=== PATIENT | male | born 1940 | race Caucasian/White ===

== ENCOUNTER → 2018-04-01 08:51 | Outpatient (CLI) | payer MEDICARE, OTHER, SELFPAY ==
[2018-04-01 10:56] LABS: Anion Gap 7 (5-15); BUN 25 mg/dL (7-18); BUN/Creat Ratio 21.6 RATIO (10-20); Calcium,Total 8.9 mg/dL (8.5-10.1); Chloride 106 mmol/L (98-107); Cholesterol 160 mg/dL (200); Creatinine, Serum 1.16 mg/dL (0.70-1.30); EST Glomerular Filtration Rate 65 mL/min (>60); Est Glom Filt Rate - Afr Amer 78 mL/min (>60); Glucose 101 mg/dL (74-106); High Density Lipoprotein 34 mg/dL; Sodium Level 140 mmol/L (136-145); Thyroid Stim Hormone (TSH) 0.89 uIU/mL (0.358-3.74); Triglycerides 106 mg/dL; Very Low Density Lipoprotein 21 mg/dL (5-40)
== END ==
PROVIDERS: Family Provider Family Medicine; PCP Family Medicine; Visit Provider Family Medicine
DX: I10 Essential (primary) hypertension (principal); R53.83 Other fatigue
CPT/HCPCS: 36415; 80048; 80061; 84443

== ENCOUNTER → 2018-10-05 08:48 | Outpatient (CLI) | payer MEDICARE, OTHER, SELFPAY ==
[2018-10-05 10:53] LABS: Anion Gap 8 (5-15); BUN 17 mg/dL (7-18); BUN/Creat Ratio 13.7 RATIO (10-20); Calcium,Total 8.4 mg/dL (8.5-10.1); Chloride 106 mmol/L (98-107); Cholesterol 140 mg/dL (200); Creatinine, Serum 1.24 mg/dL (0.70-1.30); EST Glomerular Filtration Rate 60 mL/min (>60); Est Glom Filt Rate - Afr Amer 72 mL/min (>60); Glucose 90 mg/dL (74-106); High Density Lipoprotein 35 mg/dL; Potassium 3.8 mmol/L (3.5-5.1); Sodium Level 144 mmol/L (136-145); Triglycerides 148 mg/dL; Very Low Density Lipoprotein 30 mg/dL (5-40)
== END ==
PROVIDERS: Family Provider Family Medicine; PCP Family Medicine; Visit Provider Family Medicine
DX: I10 Essential (primary) hypertension (principal)
CPT/HCPCS: 36415; 80048; 80061

== ENCOUNTER → 2019-03-28 09:22 | Outpatient (CLI) | payer MEDICARE, OTHER, SELFPAY ==
[2019-03-28 18:00] LABS: Anion Gap 5 (5-15); BUN 22 mg/dL (7-18); BUN/Creat Ratio 17.5 RATIO (10-20); Calcium,Total 8.5 mg/dL (8.5-10.1); Chloride 107 mmol/L (98-107); Cholesterol 150 mg/dL (200); Creatinine, Serum 1.26 mg/dL (0.70-1.30); EST Glomerular Filtration Rate 59 mL/min (>60); Est Glom Filt Rate - Afr Amer 71 mL/min (>60); Glucose 85 mg/dL (74-106); High Density Lipoprotein 35 mg/dL; Potassium 3.5 mmol/L (3.5-5.1); Sodium Level 142 mmol/L (136-145); Triglycerides 176 mg/dL; Very Low Density Lipoprotein 35 mg/dL (5-40)
== END ==
PROVIDERS: Family Provider Family Medicine; PCP Family Medicine; Referring Provider Family Medicine; Visit Provider Family Medicine
DX: I10 Essential (primary) hypertension (principal)
CPT/HCPCS: 36415; 80048; 80061

== ENCOUNTER → 2019-09-28 09:07 | Outpatient (CLI) | payer MEDICARE, OTHER, SELFPAY ==
[2019-09-28 10:09] LABS: Anion Gap 8 (5-15); BUN 20 mg/dL (7-18); BUN/Creat Ratio 15.6 RATIO (10-20); Calcium,Total 8.7 mg/dL (8.5-10.1); Chloride 105 mmol/L (98-107); Cholesterol 151 mg/dL (200); Creatinine, Serum 1.28 mg/dL (0.70-1.30); EST Glomerular Filtration Rate 58 mL/min (>60); Est Glom Filt Rate - Afr Amer 70 mL/min (>60); Glucose 109 mg/dL (74-106); High Density Lipoprotein 34 mg/dL; Potassium 3.7 mmol/L (3.5-5.1); Sodium Level 142 mmol/L (136-145); Triglycerides 235 mg/dL; Very Low Density Lipoprotein 47 mg/dL (5-40)
== END ==
PROVIDERS: Family Provider Family Medicine; PCP Family Medicine; Visit Provider Family Medicine
DX: I10 Essential (primary) hypertension (principal); E78.1 Pure hyperglyceridemia
CPT/HCPCS: 36415; 80048; 80061

== ENCOUNTER → 2020-03-29 08:49 | Outpatient (CLI) | payer MEDICARE, OTHER, SELFPAY ==
[2020-03-29 10:45] LABS: Anion Gap 6 (5-15); BUN 16 mg/dL (7-18); BUN/Creat Ratio 13.2 RATIO (10-20); Calcium,Total 8.7 mg/dL (8.5-10.1); Chloride 108 mmol/L (98-107); Cholesterol 161 mg/dL (200); Creatinine, Serum 1.21 mg/dL (0.70-1.30); EST Glomerular Filtration Rate 61 mL/min (>60); Est Glom Filt Rate - Afr Amer 74 mL/min (>60); Glucose 108 mg/dL (74-106); High Density Lipoprotein 34 mg/dL; Potassium 3.5 mmol/L (3.5-5.1); Sodium Level 141 mmol/L (136-145); Triglycerides 218 mg/dL; Very Low Density Lipoprotein 44 mg/dL (5-40)
== END ==
PROVIDERS: PCP Family Medicine; Visit Provider Family Medicine
DX: I10 Essential (primary) hypertension (principal); E78.1 Pure hyperglyceridemia
CPT/HCPCS: 36415; 80048; 80061

== ENCOUNTER → 2020-09-27 09:04 | Outpatient (CLI) | payer MEDICARE, OTHER, SELFPAY ==
[2020-09-27 10:15] LABS: Anion Gap 6 (5-15); BUN 16 mg/dL (7-18); BUN/Creat Ratio 13.9 RATIO (10-20); Calcium,Total 8.9 mg/dL (8.5-10.1); Chloride 109 mmol/L (98-107); Cholesterol 151 mg/dL (200); Creatinine, Serum 1.15 mg/dL (0.70-1.30); EST Glomerular Filtration Rate 65 mL/min (>60); Est Glom Filt Rate - Afr Amer 79 mL/min (>60); Glucose 107 mg/dL (74-106); High Density Lipoprotein 44 mg/dL; Potassium 3.3 mmol/L (3.5-5.1); Sodium Level 144 mmol/L (136-145); Triglycerides 122 mg/dL; Very Low Density Lipoprotein 24 mg/dL (5-40)
== END ==
PROVIDERS: PCP Family Medicine; Referring Provider Family Medicine; Visit Provider Family Medicine
DX: I10 Essential (primary) hypertension (principal); E78.1 Pure hyperglyceridemia
CPT/HCPCS: 36415; 80048; 80061

== ENCOUNTER → 2020-10-04 09:20 | Outpatient (CLI) | payer MEDICARE, OTHER, SELFPAY ==
--- NOTE | 2020-10-04 09:48 | LES_PTH ---
PATIENT: MANJU ALVARADO LOC: [facility] U#:[id number] AGE/SX: 84/M ROOM: RE10/04/[address]: Dr. Bo Ambrosio MD : 1940 BED: DIS: SPEC #: [id number] RECD: 10/04/20 12:01 STATUS: RADHA ZARATE #: [id number] DARION: 10/04/20 09:[address]: Bo Ambrosio DEPT: SURGICAL PATHOLOGY RECD BY: Lianne Garcia Tissues: A - Skin of finger, NOS B - Skin of back, NOS Procedures: Surgery Specimen Level IV HEADER OPERATION: Skin excision PRE-OP DIAGNOSIS: Suspicious skin lesion TISSUE SUBMITTED: A - Left little finger growth, B - Back mole skin lesion MICROSCOPIC DIAGNOSIS A. Left little finger growth, biopsy: Superficial fragments of epidermis with parakeratosis. See comment. B. Back mole skin lesion, biopsy: Actinic keratosis with features of seborrheic keratosis. Negative for malignancy. SJ:amira 10/07/20 COMMENT A. Clinical correlation and appropriate follow up are necessary. Excisional biopsy of lesion is suggested if clinically indicated. MICROSCOPIC DESCRIPTION Slides are reviewed. GROSS DESCRIPTION A - Received in fixative is one container labeled with the patient's name and designated left little finger growth. The specimen consists of multiple irregular fragments of cintron-white soft indurated tissue that in aggregate measure 0.3 x 0.2 x 0.1 cm. The specimen is totally submitted in one cassette. B - Received in fixative is one container labeled with the patient's name and designated back mole. The specimen consists of a punch biopsy of cintron-brown skin measuring 0.4 x 0.3 x 0.1 cm. Also present in the container is a piece of cintron soft tissue measuring 0.2 x 0.1 x 0.1 cm. The entire specimen is submitted in one cassette. / TIMA:amira 10/04/20 TC:5 CPT: 03742 x2
== END ==
PROVIDERS: PCP Family Medicine; Referring Provider Family Medicine; Visit Provider Family Medicine
DX: L98.9 Disorder of the skin and subcutaneous tissue, unspecified (principal)
CPT/HCPCS: 88305

== ENCOUNTER → 2021-03-24 08:46 | Outpatient (CLI) | payer MEDICARE, OTHER, SELFPAY ==
[2021-03-24 10:22] LABS: AST(SGOT) 18 U/L (15-37); Alanine Aminotransfer ALT/SGPT 25 U/L (16-61); Albumin, Serum 3.7 g/dL (3.2-5.0); Alkaline Phosphatase 115 U/L (45-117); Anion Gap 6 (5-15); BUN 21 mg/dL (7-18); BUN/Creat Ratio 15.9 RATIO (10-20); Chloride 102 mmol/L (98-107); Cholesterol 169 mg/dL (200); Creatinine, Serum 1.32 mg/dL (0.70-1.30); EST Glomerular Filtration Rate 55 mL/min (>60); Est Glom Filt Rate - Afr Amer 67 mL/min (>60); Globulin 3.6 g/dL (2.2-4.2); Glucose 102 mg/dL (74-106); High Density Lipoprotein 41 mg/dL; Protein, Total 7.3 g/dL (6.4-8.2); Sodium Level 137 mmol/L (136-145); Triglycerides 153 mg/dL; Very Low Density Lipoprotein 31 mg/dL (5-40)
== END ==
PROVIDERS: PCP Family Medicine; Visit Provider Family Medicine
DX: E78.1 Pure hyperglyceridemia (principal)
CPT/HCPCS: 36415; 80053; 80061

== ENCOUNTER → 2021-09-22 09:04 | Outpatient (CLI) | payer MEDICARE, OTHER, SELFPAY ==
[2021-09-22 10:41] LABS: Anion Gap 8 (5-15); BUN 21 mg/dL (7-18); BUN/Creat Ratio 16.7 RATIO (10-20); Chloride 104 mmol/L (98-107); Cholesterol 146 mg/dL (200); Creatinine, Serum 1.26 mg/dL (0.70-1.30); EST Glomerular Filtration Rate 58 mL/min (>60); Est Glom Filt Rate - Afr Amer 71 mL/min (>60); Glucose 112 mg/dL (74-106); High Density Lipoprotein 32 mg/dL; Sodium Level 140 mmol/L (136-145); Triglycerides 274 mg/dL; Very Low Density Lipoprotein 55 mg/dL (5-40)
== END ==
PROVIDERS: PCP Family Medicine; Referring Provider Family Medicine; Visit Provider Family Medicine
DX: I10 Essential (primary) hypertension (principal)
CPT/HCPCS: 36415; 80048; 80061

== ENCOUNTER → 2022-03-23 | Outpatient (CLI) | payer MEDICARE, OTHER, SELFPAY ==
[2022-03-23 10:49] LABS: Anion Gap 7 (5-15); BUN 26 mg/dL (7-18); BUN/Creat Ratio 20.8 RATIO (10-20); Calcium,Total 8.5 mg/dL (8.5-10.1); Chloride 108 mmol/L (98-107); Cholesterol 143 mg/dL (200); Creatinine, Serum 1.25 mg/dL (0.70-1.30); EST Glomerular Filtration Rate 59 mL/min (>60); Est Glom Filt Rate - Afr Amer 71 mL/min (>60); Glucose 112 mg/dL (74-106); High Density Lipoprotein 34 mg/dL; Potassium 3.7 mmol/L (3.5-5.1); Sodium Level 141 mmol/L (136-145); Triglycerides 171 mg/dL; Very Low Density Lipoprotein 34 mg/dL (5-40)
== END | disposition home or self-care (01) ==
PROVIDERS: PCP Family Medicine; Referring Provider Family Medicine; Visit Provider Family Medicine
DX: I10 Essential (primary) hypertension (principal)
CPT/HCPCS: 36415; 80048; 80061

== ENCOUNTER → 2022-09-21 | Outpatient (CLI) | payer MEDICARE, OTHER, SELFPAY ==
[2022-09-21 13:09] LABS: AST(SGOT) 21 U/L (15-37); Alanine Aminotransfer ALT/SGPT 27 U/L (16-61); Albumin, Serum 3.7 g/dL (3.2-5.0); Alkaline Phosphatase 113 U/L (45-117); Anion Gap 6 (5-15); BUN 25 mg/dL (7-18); BUN/Creat Ratio 19.2 RATIO (10-20); Chloride 107 mmol/L (98-107); Cholesterol 148 mg/dL (200); EST Glomerular Filtration Rate 56 mL/min (>60); Est Glom Filt Rate - Afr Amer 68 mL/min (>60); Globulin 3.6 g/dL (2.2-4.2); Glucose 107 mg/dL (74-106); High Density Lipoprotein 32 mg/dL; Potassium 3.6 mmol/L (3.5-5.1); Protein, Total 7.3 g/dL (6.4-8.2); Sodium Level 140 mmol/L (136-145); Triglycerides 255 mg/dL; Very Low Density Lipoprotein 51 mg/dL (5-40)
== END | disposition home or self-care (01) ==
LOC: MFPLAB 09:18
PROVIDERS: PCP Family Medicine; Visit Provider Family Medicine
DX: I10 Essential (primary) hypertension (principal); Z12.5 Encounter for screening for malignant neoplasm of prostate
CPT/HCPCS: 36415; 80053; 80061

== ENCOUNTER → 2023-03-22 | Outpatient (CLI) | payer MEDICARE, OTHER, SELFPAY ==
[2023-03-22 10:15] LABS: AST(SGOT) 24 U/L (15-37); Alanine Aminotransfer ALT/SGPT 28 U/L (16-61); Albumin, Serum 3.6 g/dL (3.2-5.0); Alkaline Phosphatase 120 U/L (45-117); Anion Gap 1 (5-15); BUN 25 mg/dL (7-18); BUN/Creat Ratio 18.7 RATIO (10-20); Chloride 108 mmol/L (98-107); Cholesterol 155 mg/dL (200); Creatinine, Serum 1.34 mg/dL (0.70-1.30); EST Glomerular Filtration Rate 54 mL/min (>60); Est Glom Filt Rate - Afr Amer 65 mL/min (>60); Globulin 3.7 g/dL (2.2-4.2); Glucose 101 mg/dL (74-106); High Density Lipoprotein 32 mg/dL; Protein, Total 7.3 g/dL (6.4-8.2); Sodium Level 139 mmol/L (136-145); Triglycerides 202 mg/dL; Very Low Density Lipoprotein 40 mg/dL (5-40)
== END | disposition home or self-care (01) ==
LOC: MFPLAB 09:09
PROVIDERS: PCP Family Medicine; Visit Provider Family Medicine
DX: I10 Essential (primary) hypertension (principal)
CPT/HCPCS: 36415; 80053; 80061

== ENCOUNTER → 2023-09-20 | Outpatient (CLI) | payer MEDICARE, OTHER, SELFPAY ==
[2023-09-20 11:01] LABS: Anion Gap 5 (5-15); BUN 23 mg/dL (7-18); BUN/Creat Ratio 17.6 RATIO (10-20); Calcium,Total 8.9 mg/dL (8.5-10.1); Chloride 109 mmol/L (98-107); Creatinine, Serum 1.31 mg/dL (0.70-1.30); EST Glomerular Filtration Rate 55 mL/min (>60); Est Glom Filt Rate - Afr Amer 67 mL/min (>60); Glucose 105 mg/dL (74-106); Potassium 3.9 mmol/L (3.5-5.1); Sodium Level 141 mmol/L (136-145)
== END | disposition home or self-care (01) ==
LOC: MFPLAB 09:09
PROVIDERS: PCP Family Medicine; Visit Provider Family Medicine
DX: I10 Essential (primary) hypertension (principal)
CPT/HCPCS: 36415; 80048

== ENCOUNTER → 2024-03-23 | Outpatient (CLI) | payer MEDICARE, OTHER, SELFPAY ==
[2024-03-23 11:35] LABS: ALB/GLOB Ratio 0.8 RATIO (0.9-2.4); AST(SGOT) 22 U/L (15-37); Alanine Aminotransfer ALT/SGPT 20 U/L (16-61); Albumin, Serum 3.4 g/dL (3.2-5.0); Alkaline Phosphatase 98 U/L (45-117); Anion Gap 6 (5-15); BUN 22 mg/dL (7-18); BUN/Creat Ratio 16.7 RATIO (10-20); Calcium,Total 9.1 mg/dL (8.5-10.1); Chloride 107 mmol/L (98-107); Cholesterol 139 mg/dL (200); Creatinine, Serum 1.32 mg/dL (0.70-1.30); EST Glomerular Filtration Rate 55 mL/min (>60); Est Glom Filt Rate - Afr Amer 66 mL/min (>60); Glucose 104 mg/dL (74-106); High Density Lipoprotein 40 mg/dL; Potassium 3.9 mmol/L (3.5-5.1); Protein, Total 7.4 g/dL (6.4-8.2); Sodium Level 140 mmol/L (136-145); Triglycerides 92 mg/dL; Very Low Density Lipoprotein 18 mg/dL (5-40)
== END | disposition home or self-care (01) ==
LOC: MFPLAB 09:19
PROVIDERS: PCP Family Medicine; Visit Provider Family Medicine
DX: I10 Essential (primary) hypertension (principal)
CPT/HCPCS: 36415; 80053; 80061

== ENCOUNTER → 2024-09-27 | Outpatient (CLI) | payer MEDICARE, OTHER, SELFPAY ==
--- OUTSIDE RECORDS SUMMARY | 2024-09-27 10:09 | XMS RPT_ITS | CCD ---
Author Organization [facility] Inform ion Partnership [facility] [employer] Care Team Providers Care Survey Party Chief Name Role Phone Pending Provider Unavailable Unavailable BHAVNA KERN II Attending UnavailBO Keyes Primary Care Unavailable MD VINCENT FRAZIER Attending Unavailabl e FRAZIER, MD VINCENT SILVA Referring Unavailabl e Pending, Provider Primary Care Unavailable MD VINCENT FRAZIER Attending Unavailabl e FRAZIER, MD VINCENT SILVA Referring Unavailabl e Pending, Provider Primary Care Unavailable MD VINCENT FRAZIER Attending Unavailabl e FRAZIER, MD VINCENT SILVA Referring Unavailabl e Pending, Provider Primary Care Unavailable Unavailable Primary Care Provider UnavailVINCENT Vaughan Referring Unavailable BO NOBLE Primary Care Unavailable VINCENT FRAZIER Attending Unavailable FRAZIERVINCENT Mak Attending Unavailable FRAZIERVINCENT Mak Attending Unavailable BO NOBLE Primary Care Unavailable Hebert COLEMAN, Bo Hall Primary Care Provider Allergies Allergy Classification Reported Allergen(s) Allergy Type Date of Onset Reaction(s) Facility (17 sources) Penicillins; Translations: [Penicillins] Allergy to drug (finding) 02-18-20 14 [facility] Repository (15 sources) Sulfamethoxazole / Trimethoprim; Translations: [Bactrim] Drug Allergy 02-15-20 24 Unknown [facility] Work Phone: (6 sources) Doxycycline; Translations: [DOXYCYCLINE] Drug Allergy 11-06-20 21 Unknown [facility] Repository (1 source) Seasonal allergy; Translations: [SEASONAL ALLERGIES] Propensity to adverse reactions (disorder) 05-29-20 15 [facility] Repository (2 sources) Penicillins Drug Allergy 02-18-20 14 [facility] Work Phone: (3 sources) Sulfamethoxazole / Trimethoprim; Translations: [SULFAMETHOXAZOLE-TR IMETHOPRIM] Drug Allergy 02-15-20 [facility] (1 source) ALLERGIES NOT ON FILE; Translations: [ALLERGIES NOT ON FILE] Propensity to adverse reactions (disorder) [facility] Medications Current Medications Medication Drug Class(es) Dates Sig (Normalized) Sig (Original) amLODIPine 10 mg oral tablet (15 sources) Dihydropyridine Calcium Channel Josefa Start: 02-17-2014 amLODIPine (Norvasc) 10 mg tablet Take by mouth. 02/17/2014 Active amLODIPine Besyl ate 10 MG Oral Tablet Quantity: 0 Refills: 0 Ordered: 20-Jan-2021 DO Active Glucosamine (2 sources) GLUCOSAMINE HCL ORAL Take by mouth. Active GLUCOSAMINE HCL ORAL Take by mouth. 0 Active hydroCHLOROthiazide 25 mg oral tablet (15 sources) Thiazide Diuretic Start: 02-17-2014 take 1 tablet by mouth once daily hydroCHLOROthiazide (HYDRODiuril) 25 mg tablet Take 1 tablet (25 mg) by mouth once daily. 02/17/2014 Active hydroCHLOROthiaz jesús 25 MG Oral Tablet Quantity: 0 Refills: 0 Ordered: 29-Dec-2019 DO Active losartan potassium 50 mg oral tablet (14 sources) Angiotensin 2 Receptor Josefa take 1 tablet by mouth once daily losartan (Cozaar) 50 mg tablet Take 1 tablet (50 mg) by mouth once daily. Active Losartan Potassi um 50 MG Oral Tablet Quantity: 0 Refills: 0 Ordered: 25-Aug-2021 DO Active zinc sulfate 66 mg oral tabl et (2 sources) zinc sulfate (Zi nc-15) 66 mg tablet Take by mouth. Active zinc sulfate (Zi nc-15) 66 mg tablet Take by mouth. 0 Active Completed/Discontinued Medications Medication Drug Class(es) Dates Sig (Normalized) Sig (Original) lisinopril 10 mg oral tablet (1 source) Angiotensin Converting Enzyme Inhibitor Start: 10-28-2020 Lisinopril 10 MG Oral Tablet Quantity: 90 Refills: 0 Ordered: 28-Oct-2020 DO Start : 28-Oct-2020 Active Problems Active Problems Problem Classification Problem Date Documented Da te Episodic/Chronic Hyperplasia of prostate (20 sources) Benign prostatic hypertrophy without outflow obstruction; Translations: [Hypertrophy (benign) of prostate without urinary obstruction and other lower urinary tract symptom (LUTS)] Onset: 02-04-2024 02-15-2024 Chronic Other male genital disorders (19 sources) Male erectile dysfunction, unspecified; Translations: [Erectile dysfunction] Onset: 02-15-2024 02-15-2024 Chronic Past or Other Problems Problem Classification Problem Date Documented Da te Episodic/Chronic Genitourinary symptoms and ill-defined conditions (19 sources) Nocturia; Translations: [Nocturia] Onset: 02-15-2024 02-15-2024 Episodic Other screening for suspected conditions (not mental disorders or infectious disease) (20 sources) Raised prostate specific antigen; Translations: [Elevated prostate specific antigen [PSA]] Onset: 02-15-2024 02-15-2024 Episodic Unclassified (2 sources) Onset: 02-16-2024 02-16-2024 Results Test Name Value Interpretation Reference Range Facility MR PROSTATE WITH [place]OR[place] BOUNDAR IES IF PIRADS 3 OR ABOVEon 08-24-2024 MR PROSTATE WITH [place]OR[place] BOUNDARIES IF PIRADS 3 OR ABOVE Interpreted By: Joselo Gentile and Anayeli Rose STUDY: MR PROSTATE WITH [place]OR[place] BOUNDARIES IF PIRADS 3 OR ABOVE; 08/24/2024 12:44 pm INDICATION: Signs/Symptoms:eleva pan PSA. Per EMR, patient is an 83-year-old male with an elevated PSA of 21.1 ng/mL on 08/07/2024 and prior negative prostate biopsy in 2018. ,R97.20 Elevated prostate specific antigen (PSA) COMPARISON: Prostate MRI 02/06/2021 ACCESSION NUMBER(S): [id number] ORDERING CLINICIAN: VINCENT FRAZIER TECHNIQUE: Multiplanar MRI of the pelvis was obtained including axial, sagittal and coronal T2 weighted SSFSE, axial and sagittal T2 FSE, axial DWI, pre and post gadolinium dynamic T1 GRE sequences. Multiparametric analysis was performed. 15 ML of Dotarem was administered intravenously without immediate complications. FINDINGS: PROSTATE VOLUME: The prostate measures 5.5 cm x 4.5 cm x 5.9 cm in lwwtt-ve-gjkq, anterior-posterior and craniocaudal dimension. Prostate weight is estimated at 76.5g. PSA density is 0.28 ng/mL/g. PROSTATE PARENCHYMA: There is heterogeneous enlargement of the transition zone, consistent with benign prostatic hyperplasia. The peripheral zone is diffusely heterogenous on T2WI, with bilateral polygonal and wedge-shaped T2-hypointense areas, that show no signs of abnormally restricted diffusion (PI-RADS 2). EXTRACAPSULAR EXTENSION: None. SEMINAL VESICLES: Within normal limits. PELVIC LYMPH NODES: Small bilateral external iliac lymph nodes, more on the left. No abnormally enlarged pelvic lymph nodes are identified. PERITONEUM: No free or loculated fluid collections are evident in the pelvis. OTHER ORGANS: Small bilateral fat containing inguinal hernias, right greater than left. Experimental [employer] Test Mechanic imaging demonstrates small bilateral extratesticular spermatoceles versus small hydroceles. BONES: No focal lesions are noted in the bone. Exam Quality: Is T2WI weighted imaging of diagnostic quality: Yes. T2WI assessment: Adequate. Is DWI of diagnostic quality: Yes. DWI assessment: Adequate. Is DCE of diagnostic quality: Yes. DCE assessment: Adequate. PI-QUAL score: Two or more sequences independently are of diagnostic quality Comments: IMPRESSION: 1. No evidence of clinically significant prostatic neoplasm. 2. BPH changes of the transition zone. Diffuse non nodular hypointensities within the peripheral zone, without evidence of focally restricted diffusion ( PI-RADS 2). PI-RADS 2 - Low (clinically significant cancer is unlikely to be present). I personally reviewed the images/study and I agree with the findings as stated by resident physician Dr. Rose Carrington. This study was interpreted at [place], [place]. MACRO: None Signed by: Joselo Gentile 08/27/2024 9:25 PM Dictation workstation: [id number] Normal [facility] Prostate specific Agon 08-07 Prostate specific Ag [Mass/Vol] 21.07 ng/mL High <=4.00 [facility] Comment on above: Order Comment: The F DA requires that the method used for PSA assay be reported to the physician. Values obtained with different assay methods must not be used interchangeably. This test was performed at [facility] using the [employer]ubble [employer] Balm PSA assay is a two-site immunoenzymatic sandwich assay. The assay is approved for measurement of prostate-specific antigen (PSA)in serum and may be used in conjunction with a digital rectal examination in men 50 years and older as an aid in detection of prostate cancer. 8-Dperb-zmhigsgfe inhibitors (e.g. Proscar, Finasteride, Avodart, Dutasteride and Ashley) for the treatment of BPH have been shown to lower PSA levels by an average of 50% after 6 months of treatment. Performed By: #### 2 857-1 #### LIANNE DE LEÓN ([id number]) [facility] [address] [place], [place] [id number] Prostate specific Agon 02-03 Prostate specific Ag [Mass/Vol] 15.50 ng/mL High <=4.00 [facility] Comment on above: Order Comment: The F DA requires that the method used for PSA assay be reported to the physician. Values obtained with different assay methods must not be used interchangeably. This test was performed at [facility] using the Bubble [employer] Balm PSA assay is a two-site immunoenzymatic sandwich assay. The assay is approved for measurement of prostate-specific antigen (PSA)in serum and may be used in conjunction with a digital rectal examination in men 50 years and older as an aid in detection of prostate cancer. 2-Nwapl-cnfxrcder inhibitors (e.g. Proscar, Finasteride, Avodart, Dutasteride and Ashley) for the treatment of BPH have been shown to lower PSA levels by an average of 50% after 6 months of treatment. Performed By: #### 2 857-1 #### LIANNE DE LEÓN ([id number]) [facility] [address] [place], [place] [address] Office Visit (Urology)on Follow-up visit Diagnoses/Problems Assessed Benign prostatic hyperplasia without urinary obstruction (600.00) (N40.0) Elevated PSA (790.93) (R97.20) Erectile dysfunction (607.84) (N52.9) Nocturia (788.43) (R35.1) Former smoker (V15.82) (Z87.891) Patient Discussion/Summary All available PSA values reviewed, Options discussed. Questions answered. Pros and cons of prostate biopsy reviewed. Other options discussed. Questions answered Past MRI reviewed Discussed New MRI Diet changes for prostate health discussed and educational information given. Pros/Cons of prostate health supplements discussed. Treatment options for LUTS reviewed Discussed timed voiding. Discussed fluid and caffeine intake Treatment options for ED reviewed. Lifestyle change to help prevent UTIs discussed. Encouraged fluid intake. F/u 6 months with PSA Chief Complaint 6 mo w/ PSA History of Present IllnessPatient has chronic hx of Elevated PSA. Most recent PSA was 15.92 on 08/21. Prior PSA was 15.66 (02/18) Previous PSA was 12.47 on 08/20. Prior PSA was 11.44 on 02/17. Prior PSA was 10.43 on 07/2021. Prior PSA was 12.52 on 12/2020. Prior PSA was done 07/18 and was 10.49..prior PSA was 10.53 on 12/2019 . Pt has had 2 negative bx in the past. Last bx on 06/2018.. Negative MRI on 01/2021. No weight loss...No bone pain... No fhx of prostate ca... LUT's are chronic and mild...Some urgency but no frequency ... No dysuria..No hematuria...Nocturia 1x. No medications for LUT's... ED is chronic. No medications for this. Review of Systems Constitutional: No fever, No chills. Eye: Negative. Ear/Nose/Mouth/Throa t: Negative. Respiratory: No shortness of breath, No cough. Cardiovascular: No chest pain, No peripheral edema. Gastrointestinal: No nausea, Genitourinary: Negative except as documented in history of present illness. Hematology/Lymphatic s: Patient denies being on blood thinners.. Endocrine: Negative. Immunologic: Not immunocompromised. Musculoskeletal: Negative Integumentary: Negative. Neurologic: Alert and oriented X4. Psychiatric: Negative. Active Problems Problems Benign prostatic hyperplasia without urinary obstruction (600.00) (N40.0) Elevated PSA (790.93) (R97.20) Erectile dysfunction (607.84) (N52.9) Nocturia (788.43) (R35.1) Surgical History Problems History of Cholecystectomy Family History Mother Family history of cardiac arrest (V17.49) (Z82.49) Family history of hypertension (V17.49) (Z82.49) Father Family history of diabetes mellitus (V18.0) (Z83.3) Sister Family history of leukemia (V16.6) (Z80.6) Social History Problems Former smoker (V15.82) (Z87.891) Allergies Medication Bactrim Recorded By: Becky Payton; 12/29/2019 9:57:01 AM Additional reactions - allergy Penicillins Recorded By: Becky Payton; 12/29/2019 9:57:01 AM Additional reactions - allergy Current Meds Medication NameInstruction amLODIPine Besylate 10 MG Oral Tablet hydroCHLOROthiazide 25 MG Oral Tablet Losartan Potassium 50 MG Oral Tablet Vitals Vital Signs Recorded: [id number] 10:59AM Heart Rate65 Peidxfsn029 Cutwrwlmz28 Pvlckz065 lb 8 oz BMI Hcnflnztjq04.52 kg/m2 BSA Calculated1.87 Tobacco Useb) No PHQ-2 #1. Over the last 2 weeks have you felt down, depressed or hopeless? (If yes, answer PHQ-9 below)No PHQ-2 #2. Over the last 2 weeks have you felt little interest or pleasure in doing things? (If yes, answer PHQ-9 below)No Falls Screening (Age 18+)a) No falls within the last year Physical Exam A/O x 3 in No apparent distress Constitutional: General appearance normal Respiratory: Respiratory effort is normal Gastrointestinal:Abd omen is not tender Genitourinary: Kidneys: Not palpable Bilaterally Bladder: Not palpable or tender Scrotum: No mass. No Hydrocele Epididymis: BILATERAL spermatocele. Not tender Testicles: no mass Urethra: No Discharge Penis: WNL...No lesions. Prostate: Symmetric. No Nodules. BENIGN Seminal Vesicles: No mass Sphincter Tone: normal Signatures Electronically signed by : Vincent Frazier II, MD; Aug 18 2023 11:12AM EST (Author) Normal [employer] Tobacco Screening.on 023 Adult depression screening assessment No MM-Xaliurt-Tbug and Work Phone: Fall risk assessment a) No falls within the last year JO-Ihabufu-Zckm and Work Phone: Tobacco use status CPHS b) No SR-Tcpdvos-Evbt and Work Phone: PROSTATE SPECIFIC AGon 08-09 Prostate specific Ag [Mass/Vol] 15.92 ng/mL High 0.00 - 4.00 [facility] Comment on above: Result Comment: The FDA requires that the method used for PSA assay be reported to the physician. Values obtained with different assay methods must not be used interchangeably. This test was performed at [facility] using the Access [employer] PSA assay is a two-site immunoenzymatic sandwich assay. The assay is approved for measurement of prostate-specific antigen (PSA)in serum and may be used in conjunction with a digital rectal examination in men 50 years and older as an aid in detection of prostate cancer. 6-Wolpy-wyetkuxgi inhibitors (e.g. Proscar, Finasteride, Avodart, Dutasteride and Ashley) for the treatment of BPH have been shown to lower PSA levels by an average of 50% after 6 months of treatment. Performed By: #### P SA #### [id number] [place] [address] Prostate Specific Antigenon 08-09-2023 Prostate specific Ag [Mass/Vol] 15.92 ng/mL above high threshold See Below ZZ-Jgnevqg-[facility] 232 DO Work Phone: Comment on above: Reference Range: 0.0 0 - 4.00The FDA requires that the method used for PSA assay be reported to the physician. Values obtained with different assay methods must not be used interchangeably. This testwas performed at [facility] using the Access Hybr[employer]ch PSA assay is a two-site immunoenzymatic sandwich assay. The assay is approved for measurement of prostate-specific antigen (PSA)in serum and may be used in conjunction with a digital rectal examination in men 50 years and older as an aid in detection of prostate cancer.6-Tgrbv-wxyjqntsh inhibitors (e.g. Proscar, Finasteride, Avodart, Dutasteride and Ashley) for the treatment of BPH have been shown to lower PSA levels by an average of 50% after 6 months of treatment. IO UA (automated w/o microsc opy)on 02-17-2023 Protein (U) [Mass/Vol] Negative KP-Dvjomjo-Tsae and Work Phone: IO UA (automated w/o microscopy) Negative XU-Fktjzps-Cany and Work Phone: IO UA (automated w/o microscopy) Normal JP-Zegltvp-Ejrd and Work Phone: IO UA (automated w/o microscopy) 5.0 1 TG-Bdjvulz-Pbjh and Work Phone: IO UA (automated w/o microscopy) 1.025 1 TV-Mvuvzza-Qaql and Work Phone: IO UA (automated w/o microscopy) Clear HJ-Yggdmbq-Uqbu and Work Phone: IO UA (automated w/o microscopy) Colorless AC-Wiprqdz-Ntjx and Work Phone: IO Ultrasound, measurement p ost-void resid urine and/or bl cap; no imagon 02-17-2023 IO Ultrasound, measurement post-void resid urine and/or bl cap; no imag 0 ml/min XY-Fnfijsy-Lfve and Work Phone: Office Visit (Urology)on Follow-up visit Diagnoses/Problems Assessed Benign prostatic hyperplasia without urinary obstruction (600.00) (N40.0) Elevated PSA (790.93) (R97.20) Erectile dysfunction (607.84) (N52.9) Nocturia (788.43) (R35.1) Former smoker (V15.82) (Z87.891) Orders Elevated PSA Follow-up visit in 6 months Outpatient Follow-up PSA Status: Hold For - Scheduling,Retrospec tive Authorization Requested for: 17Feb2023 Ordered Stat;For: Elevated PSA; Ordered By: Vincent Frazier II Performed: Due: 18May2023; Last Updated By: Radha Martin; 02/17/2023 10:33:41 AM Elevated PSA, Nocturia Prostate Specific Antigen; Status:Active - Retrospective Authorization; Requested for:17Feb2023; Perform:Lab Services - Lab To Draw (Blood Test); Due:18May2023; Last Updated By:Radha Martin; 02/17/2023 10:33:41 AM;Ordered; For:Elevated PSA, Nocturia; Ordered By:Vincent Frazier II; Patient Discussion/Summary All available PSA values reviewed, Options discussed. Questions answered. Pros and cons of prostate biopsy reviewed. Other options discussed. Questions answered Past BX reviewed DIscussed MRI Diet changes for prostate health discussed and educational information given. Pros/Cons of prostate health supplements discussed. Treatment options for LUTS reviewed Discussed timed voiding. Discussed fluid and caffeine intake Treatment options for ED reviewed. UA and PVR ordered/reviewed F/U 6 months with PSA Chief Complaint 6 mo w/ PSA History of Present IllnessPatient has chronic hx of Elevated PSA. Most recent PSA was 15.66 (02/18) Previous PSA was 12.47 on 08/20. Prior PSA was 11.44 on 02/17. Prior PSA was 10.43 on 07/2021. Prior PSA was 12.52 on 12/2020. Prior PSA was don 07/18 and was 10.49..prior PSA was 10.53 on 12/2019 . Pt has had 2 negative bx in the past. Last bx on 06/2018.. Negative MRI on 01/2021. No weight loss...No bone pain... No fhx of prostate ca... LUT's are chronic and mild...Some urgency but no frequency ... Some urge incontinence. No dysuria..No hematuria...Nocturia 1x. No medications for LUT's... ED is chronic. No medications for this. Review of Systems Constitutional: No fever, No chills. Eye: Negative. Ear/Nose/Mouth/Throa t: Negative. Respiratory: No shortness of breath, No cough. Cardiovascular: No chest pain, No peripheral edema. Gastrointestinal: No nausea, Genitourinary: Negative except as documented in history of present illness. Hematology/Lymphatic s: Patient denies being on blood thinners.. Endocrine: Negative. Immunologic: Not immunocompromised. Musculoskeletal: Negative Integumentary: Negative. Neurologic: Alert and oriented X4. Psychiatric: Negative. Active Problems Problems Benign prostatic hyperplasia without urinary obstruction (600.00) (N40.0) Elevated PSA (790.93) (R97.20) Erectile dysfunction (607.84) (N52.9) Nocturia (788.43) (R35.1) Surgical History Problems History of Cholecystectomy Family History Mother Family history of cardiac arrest (V17.49) (Z82.49) Family history of hypertension (V17.49) (Z82.49) Father Family history of diabetes mellitus (V18.0) (Z83.3) Sister Family history of leukemia (V16.6) (Z80.6) Social History Problems Former smoker (V15.82) (Z87.891) Allergies Medication Bactrim Recorded By: Becky Payton; 12/29/2019 9:57:01 AM Additional reactions - allergy Penicillins Recorded By: Becky Payton; 12/29/2019 9:57:01 AM Additional reactions - allergy Current Meds Medication NameInstruction amLODIPine Besylate 10 MG Oral Tablet hydroCHLOROthiazide 25 MG Oral Tablet Losartan Potassium 50 MG Oral Tablet Vitals Vital Signs Recorded: 17Feb2023 10:27AM Czgshmgorps71 Height5 ft 6 in Xlcaka667 lb BMI Rugyecoyjh57.25 kg/m2 BSA Calculated1.89 Tobacco Useb) No PHQ-2 Patient Declined/Screening not indicatedYes Falls Screening (Age 18+)a) No falls within the last year Physical Exam A/O x 3 in No apparent distress Constitutional: General appearance normal Respiratory: Respiratory effort is normal Gastrointestinal:Abd omen is not tender Genitourinary: Kidneys: Not palpable Bilaterally Bladder: Not palpable or tender Scrotum: No mass. No Hydrocele Epididymis: No spermatocele. Not tender Testicles: no mass Urethra: No Discharge Penis: WNL...No lesions Prostate: Symmetric. No Nodules Seminal Vesicles: No mass Sphincter Tone: normal Signatures Electronically signed by : Vincent Frazier II, MD; Feb 17 2023 10:37AM EST (Author) Normal [employer] Tobacco Screening.on 023 Fall risk assessment a) No falls within the last year IG-Ftuvhij-Ehca and Work Phone: Tobacco use status CPHS b) No XF-Kshbbsz-Igkp and Work Phone: Tobacco Screening. Yes WO-Joccopw-Jouk and Work Phone: PROSTATE SPECIFIC AGon 02-12 Prostate specific Ag [Mass/Vol] 15.66 ng/mL High 0.00 - 4.00 [facility] Comment on above: Result Comment: The FDA requires that the method used for PSA assay be reported to the physician. Values obtained with different assay methods must not be used interchangeably. This test was performed at [facility] using the Bubble [employer] Balm PSA assay is a two-site immunoenzymatic sandwich assay. The assay is approved for measurement of prostate-specific antigen (PSA)in serum and may be used in conjunction with a digital rectal examination in men 50 years and older as an aid in detection of prostate cancer. 6-Iatqr-qnznfavdt inhibitors (e.g. Proscar, Finasteride, Avodart, Dutasteride and Ashley) for the treatment of BPH have been shown to lower PSA levels by an average of 50% after 6 months of treatment. Performed By: #### P SA #### [id number] [place] [address] Prostate Specific Antigenon 02-12-2023 Prostate specific Ag [Mass/Vol] 15.66 ng/mL above high threshold See Below CX-Xxgozgh-Stly [facility] 232 DO Work Phone: Comment on above: Reference Range: 0.0 0 - 4.00The FDA requires that the method used for PSA assay be reported to the physician. Values obtained with different assay methods must not be used interchangeably. This testwas performed at [facility] using the Bubble [employer] Balm PSA assay is a two-site immunoenzymatic sandwich assay. The assay is approved for measurement of prostate-specific antigen (PSA)in serum and may be used in conjunction with a digital rectal examination in men 50 years and older as an aid in detection of prostate cancer.2-Hgwon-mdmqqipoj inhibitors (e.g. Proscar, Finasteride, Avodart, Dutasteride and Ashley) for the treatment of BPH have been shown to lower PSA levels by an average of 50% after 6 months of treatment. Office Visit (Urology)on Follow-up visit Diagnoses/Problems Assessed Benign prostatic hyperplasia without urinary obstruction (600.00) (N40.0) Elevated PSA (790.93) (R97.20) Erectile dysfunction (607.84) (N52.9) Nocturia (788.43) (R35.1) Former smoker (V15.82) (Z87.891) Orders Elevated PSA, Nocturia Follow-up visit in 6 months Outpatient Follow-up PSA Status: Hold For - Scheduling,Retrospec tive Authorization Requested for: [id number] Ordered Stat;For: Elevated PSA, Nocturia; Ordered By: Vincent Frazier II Performed: Due: [id number]; Last Updated By: Radha Martin; 08/21/2022 10:26:43 AM Prostate Specific Antigen; Status:Active - Retrospective Authorization; Requested for:[id number]; Perform:Lab Services - Lab To Draw (Blood Test); Due:[id number]; Last Updated By:Radha Martin; 08/21/2022 10:26:43 AM;Ordered; For:Elevated PSA, Nocturia; Ordered By:Vincent Frazier II; Patient Discussion/Summary All available PSA values reviewed, Options discussed. Questions answered. Past Bx reviewed MRI reviewed Diet changes for prostate health discussed and educational information given. Pros/Cons of prostate health supplements discussed. Treatment options for LUTS reviewed Discussed timed voiding. Discussed fluid and caffeine intake Treatment options for ED reviewed. Lifestyle change to help prevent UTIs discussed. Encouraged fluid intake. F/U 6 months with PSA Chief Complaint 6 mo w/ PSA History of Present IllnessPatient has chronic hx of Elevated PSA. Most recent PSA was 12.47 on 08/20. Prior PSA was 11.44 on 02/17. Prior PSA was 10.43 on 07/2021. Prior PSA was 12.52 on 12/2020. Prior PSA was don 07/18 and was 10.49..prior PSA was 10.53 on 12/2019...Prior PSA was 9.70 on 06/2019. Prior PSA was 11.51 on 12/2018. . Pt has had 2 negative bx in the past. Last bx on 06/2018.. Negative MRI on 01/2021. No weight loss...No bone pain... No fhx of prostate ca... LUT's are chronic and mild...Some urgency but no frequency ... Some urge incontinence. No dysuria..No hematuria...Nocturia 1x. No medications for LUT's... ED is chronic. No medications for this. Review of Systems Constitutional: No fever, No chills Eye: negative Respiratory: No shortness of breath, No cough. Cardiovascular: No chest pain Gastrointestinal: No nausea Genitourinary: Negative except as documented in history of present illness. Hematology/Lymphatic s: Patient denies being on blood thinners.. Endocrine: Negative. Immunologic: Not immunocompromised. Musculoskeletal: Negative Integumentary: Negative. Neurologic: Alert and oriented X4. Psychiatric: Negative. Active Problems Problems Benign prostatic hyperplasia without urinary obstruction (600.00) (N40.0) Elevated PSA (790.93) (R97.20) Erectile dysfunction (607.84) (N52.9) Nocturia (788.43) (R35.1) Surgical History Problems History of Cholecystectomy Family History Mother Family history of cardiac arrest (V17.49) (Z82.49) Family history of hypertension (V17.49) (Z82.49) Father Family history of diabetes mellitus (V18.0) (Z83.3) Sister Family history of leukemia (V16.6) (Z80.6) Social History Problems Former smoker (V15.82) (Z87.891) Allergies Medication Bactrim Recorded By: Becky Payton; 12/29/2019 9:57:01 AM Additional reactions - allergy Penicillins Recorded By: Becky Payton; 12/29/2019 9:57:01 AM Additional reactions - allergy Current Meds Medication NameInstruction amLODIPine Besylate 10 MG Oral Tablet hydroCHLOROthiazide 25 MG Oral Tablet Losartan Potassium 50 MG Oral Tablet Vitals Vital Signs Recorded: 21Aug2022 10:15AM Kbowgdxcelo24 Height5 ft 6 in Irbifp000 lb BMI Bbcabcvgcn08.41 kg/m2 BSA Calculated1.89 Tobacco Useb) No PHQ-2 Patient Declined/Screening not indicatedYes Falls Screening (Age 18+)a) No falls within the last year Physical Exam A/O x 3 in No apparent distress Constitutional: General appearance normal Respiratory: Respiratory effort is normal Gastrointestinal:Abd omen is not tender Genitourinary: Kidneys: Not palpable Bilaterally Bladder: Not palpable or tender Scrotum: No mass. No Hydrocele Epididymis: BILATERAL spermatocele. Not tender Testicles: no mass. WNL Urethra: No Discharge Penis: WNL...No lesions. uncircumcised Prostate: Symmetric. No Nodules. smooth Seminal Vesicles: No mass Sphincter Tone: normal Signatures Electronically signed by : Vicnent Frazier II, MD; Aug 21 2022 10:28AM EST (Author) Normal [employer] Tobacco Screening.on 022 Fall risk assessment a) No falls within the last year YX-Msdifpn-Vqls and Work Phone: Tobacco use status CPHS b) No YO-Qebqsgy-Daqa and Work Phone: Tobacco Screening. Yes EH-Ucovdwc-Skol and Work Phone: Prostate Specific Antigenon 08-14-2022 Prostate specific Ag [Mass/Vol] 12.47 ng/mL above high threshold See Below WO-Frtcbko-Ujgm land HC 232 DO Work Phone: Comment on above: Reference Range: 0.0 0 - 4.00The FDA requires that the method used for PSA assay be reported to the physician. Values obtained with different assay methods must not be used interchangeably. This testwas performed at [facility] using the Access Hybritech PSA assay is a two-site immunoenzymatic sandwich assay. The assay is approved for measurement of prostate-specific antigen (PSA)in serum and may be used in conjunction with a digital rectal examination in men 50 years and older as an aid in detection of prostate cancer.0-Kfwtp-yapyjyivt inhibitors (e.g. Proscar, Finasteride, Avodart, Dutasteride and Ashley) for the treatment of BPH have been shown to lower PSA levels by an average of 50% after 6 months of treatment. Prostate Specific Antigenon 02-16-2022 Prostate specific Ag [Mass/Vol] 11.44 ng/mL above high threshold See Below [facility] and Work Phone: Comment on above: Reference Range: 0.0 0 - 4.00The FDA requires that the method used for PSA assay be reported to the physician. Values obtained with different assay methods must not be used interchangeably. This testwas performed at [facility] using the Access Hybritech PSA assay is a two-site immunoenzymatic sandwich assay. The assay is approved for measurement of prostate-specific antigen (PSA)in serum and may be used in conjunction with a digital rectal examination in men 50 years and older as an aid in detection of prostate cancer.9-Xqekc-sydgwlyqw inhibitors (e.g. Proscar, Finasteride, Avodart, Dutasteride and Ashley) for the treatment of BPH have been shown to lower PSA levels by an average of 50% after 6 months of treatment. IO UA (automated w/o microsc opy)on 08-25-2021 Protein (U) [Mass/Vol] Negative YJ-Ijzbtlo-Sexg and Work Phone: IO UA (automated w/o microscopy) Negative ZB-Ijsqbre-Otvf and Work Phone: IO UA (automated w/o microscopy) Normal (0.2-1.0 mg/dl) ML-Nsyarnk-Qxsl and Work Phone: IO UA (automated w/o microscopy) 6.0 1 NH-Dyksarq-Kxbw and Work Phone: IO UA (automated w/o microscopy) 1.020 1 ID-Ljrbtvz-Mwwv and Work Phone: IO UA (automated w/o microscopy) Clear DW-Miwirow-Ovam and Work Phone: IO UA (automated w/o microscopy) Yellow ED-Mxfiubu-Lbrb and Work Phone: Tobacco Screening.on 021 Fall risk assessment a) No falls within the last year UE-Qxiowgi-Wmvr and Work Phone: Tobacco use status CPHS b) No FE-Qygpdvt-Zhbl and Work Phone: PROSTATE SPECIFIC AGon 08-20 Prostate specific Ag [Mass/Vol] 10.43 ng/mL High 0.00 - 4.00 [facility] Comment on above: Result Comment: The FDA requires that the method used for PSA assay be reported to the physician. Values obtained with different assay methods must not be used interchangeably. This test was performed at [facility] using the [employer] PharmabrGreenCloud PSA assay is a two-site immunoenzymatic sandwich assay. The assay is approved for measurement of prostate-specific antigen (PSA)in serum and may be used in conjunction with a digital rectal examination in men 50 years and older as an aid in detection of prostate cancer. 0-Udpov-wlijtgyqq inhibitors (e.g. Proscar, Finasteride, Avodart, Dutasteride and Ashley) for the treatment of BPH have been shown to lower PSA levels by an average of 50% after 6 months of treatment. Performed By: #### P SA #### [place] [address] Prostate Specific Antigenon 08-20-2021 Prostate specific Ag [Mass/Vol] 10.43 ng/mL above high threshold See Below CK-Dsqzpbx-Fhek and Work Phone: Comment on above: Reference Range: 0.0 0 - 4.00The FDA requires that the method used for PSA assay be reported to the physician. Values obtained with different assay methods must not be used interchangeably. This testwas performed at [facility] using the EUSA PharmabriteRV ID PSA assay is a two-site immunoenzymatic sandwich assay. The assay is approved for measurement of prostate-specific antigen (PSA)in serum and may be used in conjunction with a digital rectal examination in men 50 years and older as an aid in detection of prostate cancer.1-Yfiyq-vnabxirvb inhibitors (e.g. Proscar, Finasteride, Avodart, Dutasteride and Ashley) for the treatment of BPH have been shown to lower PSA levels by an average of 50% after 6 months of treatment. BD MRI PROSTATEon 02-06-2021 MRI PROSTATE Patient Name: MANJU OMALLEY STUDY: MRI PROSTATE; 02/06/2021 11:33 am INDICATION: Elevated PSA. PSA of 12.52 on 01/14/2021, previously 10.49 on 07/08/2020 patient has a history of negative biopsy x2 most recently in June of 2018. COMPARISON: None. ACCESSION NUMBER(S): [id number] ORDERING CLINICIAN: VINCENT FRAZIER TECHNIQUE: Multiplanar MRI of the pelvis was obtained including axial, sagittal and coronal T2 weighted SSFSE, axial and sagittal T2 FSE, axial DWI, pre and post gadolinium dynamic T1 GRE sequences. Multiparametric analysis was performed. 15 milliliter MULTIHANCE (GADOBENATE DIMEGLUMINE) was administered intravenously without immediate complications. FINDINGS: PROSTATE VOLUME: The prostate measures 4.7 cm x 4.5 cm x 5.5 cm in erloz-kt-yubd, anterior-posterior and craniocaudal dimension. Prostate weight is estimated at 60.5g. PSA density is 0.21 ng/mL/g. PROSTATE PARENCHYMA: There is hypertrophy of the transitional zone with multiple encapsulated nodules identified. Findings are consistent with changes of BPH. The bilateral peripheral zones are unremarkable. There is no evidence of clinically significant neoplasm. EXTRACAPSULAR EXTENSION: None. SEMINAL VESICLES: Within normal limits. PELVIC LYMPH NODES: No abnormally enlarged pelvic lymph nodes are identified. PERITONEUM: No free or loculated fluid collections are evident in the pelvis. OTHER ORGANS: Within normal limits. BONES: No focal lesions are noted in the bone. IMPRESSION: 1. There is no MRI evidence of clinically significant neoplasm. 2. Hypertrophy of the transitional zone with multiple well encapsulated nodules identified. Findings are consistent with BPH changes. PI-RADS v2.1 Assessment Categories PI-RADS 1 - Very low (clinically significant cancer is highly unlikely to be present) PI-RADS 2 - Low (clinically significant cancer is unlikely to be present) PI-RADS 3 - Intermediate (the presence of clinically significant cancer is equivocal) PI-RADS 4 - High (clinically significant cancer is likely to be present) PI-RADS 5 - Very high (clinically significant cancer is highly likely to be present) I personally reviewed the images/study and I agree with the findings as stated. This study was interpreted at [place], [place]. Electronically signed by: CARLOS HERNANDEZ MD [facility] PROSTATE SPECIFIC AGon 01-14 Prostate specific Ag [Mass/Vol] 12.52 ng/mL High 0.00 - 4.00 [facility] Comment on above: Result Comment: The FDA requires that the method used for PSA assay be reported to the physician. Values obtained with different assay methods must not be used interchangeably. This test was performed at [facility] using the Bubble [employer] Balm PSA assay is a two-site immunoenzymatic sandwich assay. The assay is approved for measurement of prostate-specific antigen (PSA)in serum and may be used in conjunction with a digital rectal examination in men 50 years and older as an aid in detection of prostate cancer. 6-Aqttt-sgdeosabz inhibitors (e.g. Proscar, Finasteride, Avodart, Dutasteride and Ashley) for the treatment of BPH have been shown to lower PSA levels by an average of 50% after 6 months of treatment. Performed By: #### P SA #### [address] [address] PSA Totalon 07-03-2019 PSA Total 9.70 ng/mL [facility] Comment on above: Result Comment: AGE- SPECIFIC REFERENCE RANGES FOR SERUM PSA REFERENCE RANGE NG/ML AGE ASIANS BLACKS WHITE 40-49 0-2 0-2 0-2.5 50-59 0-3 0-4 0-3.5 60-69 0-4 0-4.5 0-4.5 70-79 0-5 0-5.5 0-6.5 PSA INCREASES WITH AGE, RACE, AND EJACULATION WITHIN 48 HRS. UROLOGIC CLINICS [facility] VOL24,NO.2, , PG.339 Performed By: #### [id number] #### CATHY [employer] [facility] [place] [address] PSA Totalon 01-10-2019 PSA Total 11.51 ng/mL Normal [facility] Comment on above: Result Comment: AGE- SPECIFIC REFERENCE RANGES FOR SERUM PSA REFERENCE RANGE NG/ML AGE ASIANS BLACKS WHITE 40-49 0-2 0-2 0-2.5 50-59 0-3 0-4 0-3.5 60-69 0-4 0-4.5 0-4.5 70-79 0-5 0-5.5 0-6.5 PSA INCREASES WITH AGE, RACE, AND EJACULATION WITHIN 48 HRS. UROLOGIC [facility] VOL24,NO.2, , PG.339 Performed By: #### [id number] #### CATHY [employer] [facility] [place] [address] Vital Signs Date Time Vital Sign Value Performing Clinician Facility 09-06-2024 09:53-0400 Body mass index (BMI) [Ratio] 27.44 kg/m2 Vincent Frazier MD Work Phone: [facility] 09-06-2024 09:53-0400 Body weight 77.11 kg Vincent Frazier MD Work Phone: [facility] 09-06-2024 09:53-0400 Diastolic blood pressure 80 mm[Hg] Vincent Frazier MD Work Phone: [facility] 09-06-2024 09:53-0400 Respiratory rate 16 /min Vincent Frazier MD Work Phone: [facility] 09-06-2024 09:53-0400 Systolic blood pressure 142 mm[Hg] Vincent Frazier MD Work Phone: [facility] 02-16-2024 10:20-0400 Body height 167.6 cm Vincent Frazier MD Work Phone: [facility] 02-16-2024 10:20-0400 Body mass index (BMI) [Ratio] 27.21 kg/m2 Vincent Frazier MD Work Phone: [facility] 02-16-2024 10:20-0400 Body weight 76.48 kg Vincent Frazier MD Work Phone: [facility] 02-16-2024 10:20-0400 Diastolic blood pressure 76 mm[Hg] Vincent Frazier MD Work Phone: [facility] 02-16-2024 10:20-0400 Heart rate 73 /min Vincent Frazier MD Work Phone: [facility] 02-16-2024 10:20-0400 Systolic blood pressure 161 mm[Hg] Vincent Frazier MD Work Phone: [facility] 08-18-2023 10:59-0400 Body mass index (BMI) [Ratio] 27.52 kg/m2 Vincent Frazier II, MD Work Phone: CQ-Xnxxvuw-Fdwjxmd Work Phone: 08-18-2023 10:59-0400 Body surface area Derived from formula 1.87 m2 Vincent Frazier II, MD Work Phone: LW-Fcrbmfv-Odhshpx Work Phone: 08-18-2023 10:59-0400 Body weight 77.34 kg Vincent Frazier II, MD Work Phone: SI-Wrzmklf-Jahkdxe Work Phone: 08-18-2023 10:59-0400 Diastolic blood pressure 75 mm[Hg] Vincent Frazier II, MD Work Phone: PR-Xvyyfsw-Mfzlzyt Work Phone: 08-18-2023 10:59-0400 Heart rate 65 /min Vincent Frazier II, MD Work Phone: WI-Awimgjr-Iwavlqo Work Phone: 08-18-2023 10:59-0400 Systolic blood pressure 147 mm[Hg] Vincent Frazier II, MD Work Phone: GC-Ysohubf-Jcmndzu Work Phone: 02-17-2023 10:27-0400 Body height 167.64 cm Vincent Frazier II, MD Work Phone: HK-Ovunsgm-Ywygwyr Work Phone: 02-17-2023 10:27-0400 Body mass index (BMI) [Ratio] 28.25 kg/m2 Vincent Frazier II, MD Work Phone: RR-Mrsvlzl-Mvfvrpj Work Phone: 02-17-2023 10:27-0400 Body surface area Derived from formula 1.89 m2 Vincent Frazier II, MD Work Phone: KX-Dguflpz-Ihgpfum Work Phone: 02-17-2023 10:27-0400 Body weight 79.38 kg Vincent Frazier II, MD Work Phone: WA-Fvxtvcf-Kytrmoy Work Phone: 02-17-2023 10:27-0400 Respiratory rate 16 /min Vincent Frazier II, MD Work Phone: PW-Jslulst-Zskvvvd Work Phone: 08-21-2022 10:15-0400 Body height 167.64 cm Vincent Frazier II, MD Work Phone: JX-Wpsmnsw-Wthqyjm Work Phone: 08-21-2022 10:15-0400 Body mass index (BMI) [Ratio] 28.41 kg/m2 Vincent Frazier II, MD Work Phone: TT-Gqblwht-Omcccoj Work Phone: 08-21-2022 10:15-0400 Body surface area Derived from formula 1.89 m2 Vincent Frazier II, MD Work Phone: NB-Uphpziu-Xodpdgl Work Phone: 08-21-2022 10:15-0400 Body weight 79.83 kg Vincent Frazier II, MD Work Phone: UA-Zvefvdm-Gctdzhr Work Phone: 08-21-2022 10:15-0400 Respiratory rate 16 /min Vincent Frazier II, MD Work Phone: SP-Wtutxaz-Nqrfdsm Work Phone: 08-25-2021 10:19-0400 Body height 167.64 cm Vincent Frazier II, MD Work Phone: CO-Ckfhecn-Wusaldj Work Phone: 08-25-2021 10:19-0400 Body mass index (BMI) [Ratio] 28.57 kg/m2 Vincent Frazier II, MD Work Phone: LN-Nmvqcpw-Yuhjfdy Work Phone: 08-25-2021 10:19-0400 Body surface area Derived from formula 1.9 m2 Vincent Frazier II, MD Work Phone: FG-Kiequyz-Oehcfyk Work Phone: 08-25-2021 10:19-0400 Body weight 80.29 kg Vincent Frazier II, MD Work Phone: EM-Gnzouuc-Tcmwhka Work Phone: 08-25-2021 10:19-0400 Diastolic blood pressure 75 mm[Hg] Vincent Frazier II, MD Work Phone: TF-Jzxlnzu-Epkkota Work Phone: 08-25-2021 10:19-0400 Heart rate 77 /min Vincent Frazier II, MD Work Phone: ZT-Sbvndjv-Nwehklh Work Phone: 08-25-2021 10:19-0400 Systolic blood pressure 128 mm[Hg] Vincent Frazier II, MD Work Phone: MY-Qyxuqax-Ojidgyu Work Phone: Encounters Encounter Date Encounter Type Care Provider Facility Start: 09-06-2024 End: 09-06-2024 Office outpatient visit 25 minutes Vincent Frazier MD Work Phone: [facility] Comment on above: Elevated PSA; Erectile dysfunction, unspecified erectile dysfunction type; Nocturia; Benign prostatic hyperplasia without urinary obstruction Start: 09-06-2024 End: 09-06-2024 ambulatory [facility] Start: 08-24-2024 End: 08-24-2024 ambulatory [facility] Start: 08-16-2024 End: 08-16-2024 ambulatory [facility] Start: 08-07-2024 End: 08-07-2024 ambulatory [facility] Start: 02-16-2024 End: 02-16-2024 Office outpatient visit 25 minutes Vincent Frazier MD Work Phone: [facility] Comment on above: Benign prostatic hyp erplasia without urinary obstruction; Elevated PSA; Erectile dysfunction, unspecified erectile dysfunction type; Nocturia Start: 02-16-2024 End: 02-16-2024 ambulatory [facility] Start: 02-04-2024 End: 02-04-2024 ambulatory [facility] Start: 08-18-2023 End: 08-18-2023 ambulatory BHAVNA KERN II Facility:[facility] Start: 08-18-2023 Office outpatient vi sit 25 minutes Vincent Frazier II, MD Work Phone: WC-Tfqpcvx-Wgsdzlu Work Phone: Start: 08-18-2023 ambulatory MD VINCENT FRAZIER Fa cility:[id number] Start: 08-09-2023 Chart Update Vincent Barraza Work Phone: [facility] 232 DO Work Phone: Start: 02-17-2023 FUV, Provider: Vincent Frazier II, Status: Pen, Time: 10:00 AM Vincent Frazier II, MD Work Phone: JX-Kfzpgjx-Wxmdrjzy HC 232 DO Work Phone: Start: 02-17-2023 Office outpatient vi sit 25 minutes Vincent Frazier II, MD Work Phone: QD-Wkyezpp-Imujonf Work Phone: Start: 02-17-2023 ambulatory MD VINCENT FRAZIER Fa cility:[id number] Start: 02-15-2023 Chart Update Vincnet Barraza Work Phone: XL-Qrznyig-Dcepdcuv [facility] 232 DO Work Phone: Start: 02-10-2023 AUDIT Vincent Frazier II M D Work Phone: WT-Zantfkm-Fradhqk Work Phone: Start: 08-21-2022 Office outpatient vi sit 25 minutes Vincent Frazier II, MD Work Phone: CC-Jifgqsl-Xwvslsy Work Phone: Start: 08-21-2022 ambulatory MD VINCENT FRAZIER Fa cility:[id number] Start: 08-17-2022 Chart Update Vincent Barraza Work Phone: BX-Mrtmkqp-Bayjnbcv [facility] 232 DO Work Phone: Start: 08-13-2022 AUDIT Vincent Barraza Work Phone: UA-Dmzkzrf-Lfbdcri Work Phone: Start: 02-23-2022 AUDIT Vincent Frazier II M Christi Work Phone: CB-Hnzwmcq-Wpxxnjx Work Phone: Start: 02-17-2022 Chart Update Vincent Barraza Work Phone: AN-Silcfaq-Yaxdkvg Work Phone: Start: 08-25-2021 Office outpatient vi sit 25 minutes Vincent Frazier II, MD Work Phone: KY-Adffmdn-Fobsxtk Work Phone: Start: 08-20-2021 Chart Update Vincent Barraza Work Phone: UD-Jalodcz-Wdsbxly Work Phone: Start: 01-20-2021 Office outpatient vi sit 25 minutes Vincent Frazier II, MD Work Phone: QE-Uwzzawo-Dpgfekh Work Phone: Procedures Date Procedure Procedure Detail Performing Clinician Start: 02-04-2024 PROSTATE SPECIFIC ANTIGEN Cholecystectomy Vincent Frazier II, MD Work Phone: Plan of Treatment Date Care Activity Detail Author Start: 08-16-2024 End: 08-16-2024 Patient encounter procedure 08/16/2024 10:30 AM EDT Office Visit [facility] [address] [facility] [address] [place] [id number] Vincent Frazier MD [address] [facility] [place] [address] [facility] Start: 07-30-2024 COVID-19 Vaccine ( season) COVID-19 Vaccine () [facility] Start: 07-30-2024 Influenza vaccination Influenz a Vaccine (#1) [facility] Start: 07-30-2024 End: 02-15-2025 Prostate specific Ag [Mass/volume] in Serum or Plasma Prostate Specific Antigen Lab Routine Elevated PSA Expected: 07/30/2024 (Approximate), Expires: 02/15/2025 [facility] Service Area Work Phone: Comment on above: Expected: 07/30/2024 (Approximate), Expires: 02/15/2025 Start: 08-18-2023 FUV, Provider: Vincent Frazier II, Status: Pen, Time: 10:45 AM FUV, Provider: Vincent Frazier II, Status: Pen, Time: 10:45 AM [facility] Work Phone: Start: 07-30-2023 COVID-19 Vaccine ( season) COVID-19 Vaccine ( season) [facility] Start: 05-27-2023 Zoster Vaccines (3 of 3) Zoste r Vaccines (3 of 3) [facility] Start: 02-17-2023 FUV, Provider: Vincent Frazier II, Status: Pen, Time: 10:00 AM FUV, Provider: Vincent Frazier II, Status: Pen, Time: 10:00 AM [facility] Work Phone: Start: 08-21-2022 FUV, Provider: Vincent Frazier II, Status: Pen, Time: 10:00 AM FUV, Provider: Vincent Frazier II, Status: Pen, Time: 10:00 AM [facility] Work Phone: Start: 02-23-2022 FUV, Provider: Vincent Frazier II, Status: Pen, Time: 10:00 AM FUV, Provider: Vincent Frazier II, Status: Pen, Time: 10:00 AM [facility] Work Phone: Start: 08-25-2021 FUV, Provider: Vincent Frazier II, Status: Pen, Time: 10:15 AM FUV, Provider: Vincent Frazier II, Status: Pen, Time: 10:15 AM [facility] Work Phone: Start: 1999 RSV patient s and/or patients aged 60+ years (1 - 1-dose 60+ series) RSV patients and/or patients aged 60+ years (1 - 1-dose 60+ series) [facility] Start: 1961 DTaP/Tdap/Td Vaccine s (1 - Tdap) DTaP/Tdap/Td Vaccines (1 - Tdap) [facility] Start: 1939 Lipid panel Lipid Panel [facility] Start: 1939 Medicare Annual Well ness Visit Medicare Annual Wellness Visit (AWV) [facility] Start: 1939 Yearly Adult Physical Yearly Adult P hysical [facility] Immunizations Immunization Date Immunization Notes Care Provider Fa lenard 09-30-2023 influenza virus vaccine, unspecified formulation Vincent Frazier MD Work Phone: [facility] Work Phone: Payers Date Payer Category Payer Unknown 2018 Private Health Insurance WRO NG 2018 Private Health Insurance AET[employer] S UPPLEMENTAL AETNA SENIOR SUPPLEMENT [id number] 2018-Present Arnol [id number] [place] [address] [id number] 2018 Medicare [id number] 2005 Medicare MEDICARE MEDICAR E PART A AND B [id number] 2005-Present [address] [place] [address] [id number] 2004 Medicare [id number] 1939 Unknown [id number] .2.356 1939 Unknown [id number] .2.356 1939 Unknown [id number] [id number] .2.356 1939 Unknown [id number] .2.1245 1939 Unknown [id number] [id number] .2.1245 1939 Unknown [id number] [id number] .2.1243 1939 Unknown [id number] [id number] .2.1244 1939 Unknown [id number] .2.1244 1939 Unknown [id number] .2.1244 Social History Date Type Detail Facility Start: 02-16-2024 End: 08-16-2024 Former smoker Former smoker AG-Gbxaqoq-Jscflez Work Phone: Start: 02-16-2024 Tobacco smoking stat us NHIS Never smoked tobacco [facility] [facility] [place] Start: 02-16-2024 Tobacco use and exposure Smokeless tobacco non-user [facility] [place] Work Phone: Start: 02-16-2024 End: 09-06-2024 Alcohol intake Ex-drinker (finding) [facility] Work Phone: Start: 02-16-2024 End: 08-16-2024 Tobacco use panel [facility] [place] Work Phone: Start: 1940 Sex Assigned At Not on file [facility] Work Phone: Start: 02-06-2024 End: 09-06-2024 Exposure to SARS-CoV-2 (event) Not sure [facility] [place] History of Present illness Narrative 09-06-2024 Vincent Frazier MD - 09/06/2024 10:00 AM EDT Note Date & Type Note Facility 09-06-2024 History of Present illness Narrative Subjective Patient ID: Manju Omalley is a 83 y.o. male. HPI Patient is here prostate MRI results. MRI showed no evidence of clinically significant prostate cancer. . chronic hx of Elevated PSA. Most recent PSA was 21.07 on 08/22. Prior PSA was 15.50 on 02/19. Prior PSA was 15.92 on 08/21. Prior PSA was 15.66 (02/18) Previous PSA was 12.47 on 08/20. Prior PSA was 11.44 on 02/17. Prior PSA was 10.43 on 07/2021. Prior PSA was 12.52 on 12/2020. Prior PSA was done 07/18 and was 10.49..prior PSA was 10.53 on 12/2019 . Pt has had 2 negative bx in the past. Last bx on 06/2018.. Negative MRI on 01/2021. No weight loss...No bone pain... No fhx of prostate ca... LUT's are chronic and mild...Some urgency but no frequency ... No dysuria..No hematuria...Nocturia 1x. No medications for LUT's... ED is chronic. No medications for this. Review of Systems Constitutional: Negative for chills and fever. HENT: Negative. Eyes: Negative. Respiratory: Negative for cough and shortness of breath. Cardiovascular: Negative for chest pain and leg swelling. Gastrointestinal: Negative for nausea. Endocrine: Negative. Genitourinary: Negative for difficulty urinating. Negative except for documented in HPI Allergic/Immunologic: Negative. Neurological: Alert & oriented X 3 Hematological: Denies blood thinners Psychiatric/Behavioral: Negative. Objective Physical Exam Vitals and nursing note reviewed. Pulmonary: Effort: Pulmonary effort is normal. Abdominal: Palpations: Abdomen is soft. Tenderness: There is no abdominal tenderness. Genitourinary: Comments: Kidneys non palpable bilaterally Bladder non palpable or tender Neurological: Mental Status: He is alert. Assessment/Plan Diagnoses and all orders for this visit: Elevated PSA Erectile dysfunction, unspecified erectile dysfunction type Nocturia Benign prostatic hyperplasia without urinary obstruction All available PSA values reviewed, Options discussed. Questions answered. MRI reviewed x 2 Pros and cons of prostate biopsy reviewed. Other options discussed. Questions answered Past Bx reviewed Diet changes for prostate health discussed and educational information given. Pros/Cons of prostate health supplements discussed. Treatment options for LUTS reviewed Discussed timed voiding. Discussed fluid and caffeine intake F/U 6 months with PSA documented in this encounter [facility] [place] Work Phone: History of Present illness Narrative 02-16-2024 Vincent Frazier MD - 02/16/2024 10:15 AM EDT Note Date & Type Note Facility 02-16-2024 History of Present illness Narrative Subjective Patient ID: Manju Omalley is a 83 y.o. male. HPI Patient has chronic hx of Elevated PSA. Most recent PSA was 15.50 on 02/19. Prior PSA was 15.92 on 08/21. Prior PSA was 15.66 (02/18) Previous PSA was 12.47 on 08/20. Prior PSA was 11.44 on 02/17. Prior PSA was 10.43 on 07/2021. Prior PSA was 12.52 on 12/2020. Prior PSA was done 07/18 and was 10.49..prior PSA was 10.53 on 12/2019 . Pt has had 2 negative bx in the past. Last bx on 06/2018.. Negative MRI on 01/2021. No weight loss...No bone pain... No fhx of prostate ca... LUT's are chronic and mild...Some urgency but no frequency ... No dysuria..No hematuria...Nocturia 1x. No medications for LUT's... ED is chronic. No medications for this. Review of Systems Constitutional: Negative for chills and fever. HENT: Negative. Eyes: Negative. Respiratory: Negative for cough and shortness of breath. Cardiovascular: Negative for chest pain and leg swelling. Gastrointestinal: Negative for nausea. Endocrine: Negative. Genitourinary: Negative for difficulty urinating. Negative except for documented in HPI Allergic/Immunologic: Negative. Neurological: Alert & oriented X 3 Hematological: Denies blood thinners Psychiatric/Behavioral: Negative. Objective Physical Exam Vitals and nursing note reviewed. Constitutional: General: He is not in acute distress. Appearance: Normal appearance. Pulmonary: Effort: Pulmonary effort is normal. Abdominal: Tenderness: There is no abdominal tenderness. Genitourinary: Comments: Kidneys non palpable bilaterally Bladder non palpable or tender Scrotum no mass, No hydrocele Epididymis- No spermatocele. Non Tender. Testicles: No mass. WNL Urethra: No discharge Penis within normal limits... No lesions Prostate - symmetric, no nodules. BENIGN Seminal Vesicals: No mass. Sphincter tone: normal Neurological: Mental Status: He is alert. Assessment/Plan Diagnoses and all orders for this visit: Benign prostatic hyperplasia without urinary obstruction Elevated PSA Erectile dysfunction, unspecified erectile dysfunction type Nocturia All available PSA values reviewed, Options discussed. Questions answered. Past MRI reviewed-Discussed repeat Pros and cons of prostate biopsy reviewed. Other options discussed. Questions answered Diet changes for prostate health discussed and educational information given. Pros/Cons of prostate health supplements discussed. Treatment options for LUTS reviewed Discussed timed voiding. Discussed fluid and caffeine intake Treatment options for ED reviewed. Lifestyle change to help prevent UTIs discussed. Encouraged fluid intake. F/U 6 months with PSA documented in this encounter [facility] [place] Work Phone: Progress note 08-18-2023 Note Date & Type Note Facility 08-18-2023 Note HNO ID: [id number] Author: Bhavna Kern II, OD Service: ? 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 Stable Intraocular pressures and nerve appearance today. Monitor yearly. No treatment indicated at this time. Discussed need for continued close observation to minimize chance of future vision loss. H25.813 Combined form of senile cataract of both eyes Comment: Slow progression both eyes. Monitor. 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 Recommend update glasses to maximize visual performance. I have confirmed and edited as necessary the relevant ophthalmic history, ROS, and the neuro exam findings as obtained by others. I have seen and examined Manju Omalley. I have discussed the case and the management of this patient's care with the Resident/Fellow, if applicable. I also have reviewed and agree with the assessment and plan as stated above and agree with all of its relevant components. Bhavna Kern II, OD [facility] History of Present illness Narrative 02-18-2023 Note Date & Type Note Facility 02-18-2023 History of Present illness Narrative Patient has chronic hx of Elevated PSA. Most recent PSA was 15.92 on 08/21. Prior PSA was15.66 (02/18) Previous PSA was 12.47 on 08/20. Prior PSA was 11.44 on 02/17. Prior PSA was 10.43 on 07/2021. Prior PSA was 12.52 on 12/2020. Prior PSA was done 07/18 and was 10.49..prior PSA was 10.53 on 12/2019 . Pt has had 2 negative bx in the past. Last bx on 06/2018.. Negative MRI on 01/2021. No weight loss...No bone pain... No fhx of prostate ca... LUT's are chronic and mild...Some urgency but no frequency ... No dysuria..No hematuria...Nocturia 1x. No medications for LUT's... ED is chronic. No medications for this. [facility] Work Phone: History of Present illness Narrative 08-20-2022 Note Date & Type Note Facility 08-20-2022 History of Present illness Narrative Patient has chronic hx of Elevated PSA. Most recent PSA was 12.47 on 08/20. Prior PSA was 11.44 on 02/17. Prior PSA was 10.43 on 07/2021. Prior PSA was 12.52 on 12/2020. Prior PSA was don 07/18 and was 10.49..prior PSA was 10.53 on 12/2019...Prior PSA was 9.70 on 06/2019. Prior PSA was 11.51 on 12/2018. . Pt has had 2 negative bx in the past. Last bx on 06/2018.. Negative MRI on 01/2021. No weight loss...No bone pain... No fhx of prostate ca... LUT's are chronic and mild...Some urgency but no frequency ... Some urge incontinence. No dysuria..No hematuria...Nocturia 1x. No medications for LUT's... ED is chronic. No medications for this. [id number] Work Phone: History of Present illness Narrative 08-20-2022 Note Date & Type Note Facility 08-20-2022 History of Present illness Narrative Patient has chronic hx of Elevated PSA. Most recent PSA was 15.66 (02/18) Previous PSA was 12.47 on 08/20. Prior PSA was 11.44 on 02/17. Prior PSA was 10.43 on 07/2021. Prior PSA was 12.52 on 12/2020. Prior PSA was don 07/18 and was 10.49..prior PSA was 10.53 on 12/2019 . Pt has had 2 negative bx in the past. Last bx on 06/2018.. Negative MRI on 01/2021. No weight loss...No bone pain... No fhx of prostate ca... LUT's are chronic and mild...Some urgency but no frequency ... Some urge incontinence. No dysuria..No hematuria...Nocturia 1x. No medications for LUT's... ED is chronic. No medications for this. [facility] Work Phone: History of Present illness Narrative 07-30-2021 Note Date & Type Note Facility 07-30-2021 History of Present illness Narrative Patient has chronic hx of Elevated PSA. Most recent PSA was 10.43 on 07/2021. Prior PSA was 12.52 on 12/2020. Prior PSA was don 07/18 and was 10.49..prior PSA was 10.53 on 12/2019...Prior PSA was 9.70 on 06/2019. Prior PSA was 11.51 on 12/2018. . Pt has had 2 negative bx in the past. Last bx on 06/2018.. Negative MRI on 01/2021. No weight loss...No bone pain... No fhx of prostate ca... LUT's are chronic and mild...Some urgency but no frequency ... Some urge incontinence. No dysuria..No hematuria...Nocturia 1x. No medications for LUT's... ED is chronic. No medications for this. [employer] Work Phone: History of Present illness Narrative 12-30-2020 Note Date & Type Note Facility 12-30-2020 History of Present illness Narrative hx of elevated PSA. Most recent PSA was 12.52 on 12/2020. Prior PSA was don 07/18 and was 10.49..prior PSA was 10.53 on 12/2019...Prior PSA was 9.70 on 06/2019. Prior PSA was 11.51 on 12/2018. . Pt has had 2 negative bx in the past. Last bx on 06/2018.. No weight loss...No bone pain... No fhx of prostate ca... LUT's are chronic and mild...Denies frequency and urgency... No dysuria..No hematuria... Nocturia 1x. No medications for LUT's... ED is chronic. No medications for this. [employer] Work Phone: Evaluation note Note Date & Type Note Facility Evaluation note Diagnosis Benign prostatic hyperplasia without urinary obstruction Elevated PSA Elevated prostate specific antigen (PSA) Erectile dysfunction, unspecified erectile dysfunction type Nocturia documented in this encounter [facility] [place] Work Phone: Evaluation note Note Date & Type Note Facility Evaluation note Diagnosis Elevated PSA Elevated prostate specific antigen (PSA) Erectile dysfunction, unspecified erectile dysfunction type Nocturia Benign prostatic hyperplasia without urinary obstruction documented in this encounter [facility] [place] Work Phone: Summary Purpose Family History Unknown Family Member Name Dates Details Family history of cardiac ar rest: Mother(V17.49, Z82.49) Status:Active Family history of hypertensi on: Mother(V17.49, Z82.49) Status:Active Family history of diabetes m ellitus: Father(V18.0, Z83.3) Status:Active Family history of leukemia: Sister(V16.6, Z80.6) Status:Active Unknown Family Member Name Dates Details Family history of cardiac ar rest: Mother(V17.49, Z82.49) Status:Active Family history of hypertensi on: Mother(V17.49, Z82.49) Status:Active Family history of diabetes m ellitus: Father(V18.0, Z83.3) Status:Active Family history of leukemia: Sister(V16.6, Z80.6) Status:Active Unknown Family Member Name Dates Details Family history of leukemia: Sister(V16.6, Z80.6) Status:Active Family history of diabetes m ellitus: Father(V18.0, Z83.3) Status:Active Family history of hypertensi on: Mother(V17.49, Z82.49) Status:Active Family history of cardiac ar rest: Mother(V17.49, Z82.49) Status:Active Unknown Family Member Name Dates Details Family history of cardiac ar rest: Mother(V17.49, Z82.49) Status:Active Family history of hypertensi on: Mother(V17.49, Z82.49) Status:Active Family history of diabetes m ellitus: Father(V18.0, Z83.3) Status:Active Family history of leukemia: Sister(V16.6, Z80.6) Status:Active Unknown Family Member Name Dates Details Family history of cardiac ar rest: Mother(V17.49, Z82.49) Status:Active Family history of hypertensi on: Mother(V17.49, Z82.49) Status:Active Family history of diabetes m ellitus: Father(V18.0, Z83.3) Status:Active Family history of leukemia: Sister(V16.6, Z80.6) Status:Active Unknown Family Member Name Dates Details Family history of leukemia: Sister(V16.6, Z80.6) Status:Active Family history of diabetes m ellitus: Father(V18.0, Z83.3) Status:Active Family history of hypertensi on: Mother(V17.49, Z82.49) Status:Active Family history of cardiac ar rest: Mother(V17.49, Z82.49) Status:Active Unknown Family Member Name Dates Details Family history of cardiac ar rest: Mother(V17.49, Z82.49) Status:Active Family history of hypertensi on: Mother(V17.49, Z82.49) Status:Active Family history of diabetes m ellitus: Father(V18.0, Z83.3) Status:Active Family history of leukemia: Sister(V16.6, Z80.6) Status:Active Unknown Family Member Name Dates Details Family history of cardiac ar rest: Mother(V17.49, Z82.49) Status:Active Family history of hypertensi on: Mother(V17.49, Z82.49) Status:Active Family history of diabetes m ellitus: Father(V18.0, Z83.3) Status:Active Family history of leukemia: Sister(V16.6, Z80.6) Status:Active Unknown Family Member Name Dates Details Family history of cardiac ar rest: Mother(V17.49, Z82.49) Status:Active Family history of hypertensi on: Mother(V17.49, Z82.49) Status:Active Family history of diabetes m ellitus: Father(V18.0, Z83.3) Status:Active Family history of leukemia: Sister(V16.6, Z80.6) Status:Active Unknown Family Member Name Dates Details Family history of cardiac ar rest: Mother(V17.49, Z82.49) Status:Active Family history of hypertensi on: Mother(V17.49, Z82.49) Status:Active Family history of diabetes m ellitus: Father(V18.0, Z83.3) Status:Active Family history of leukemia: Sister(V16.6, Z80.6) Status:Active Unknown Family Member Name Dates Details Family history of cardiac ar rest: Mother(V17.49, Z82.49) Status:Active Family history of hypertensi on: Mother(V17.49, Z82.49) Status:Active Family history of diabetes m ellitus: Father(V18.0, Z83.3) Status:Active Family history of leukemia: Sister(V16.6, Z80.6) Status:Active Unknown Family Member Name Dates Details Family history of cardiac ar rest: Mother(V17.49, Z82.49) Status:Active Family history of hypertensi on: Mother(V17.49, Z82.49) Status:Active Family history of diabetes m ellitus: Father(V18.0, Z83.3) Status:Active Family history of leukemia: Sister(V16.6, Z80.6) Status:Active Unknown Family Member Name Dates Details Family history of cardiac ar rest: Mother(V17.49, Z82.49) Status:Active Family history of hypertensi on: Mother(V17.49, Z82.49) Status:Active Family history of diabetes m ellitus: Father(V18.0, Z83.3) Status:Active Family history of leukemia: Sister(V16.6, Z80.6) Status:Active Advance Directives No Advanced Directives Records FoundNo Advanced Directives Records FoundNo Advanced Directives Records FoundNo Advanced Directives Records FoundNo Advanced Directives Records FoundNo Advanced Directives Records FoundNo Advanced Directives Records FoundNo Advanced Directives Records Found Chief Complaint 6 MO W/ PSA6 month f/u w/ PSA6 mo w/ PSA6 mo w/ PSA6 mo w/ PSA Additional Source Comments (unrecognized sect ion and content) No Status Records FoundNo Status Records FoundNo Status Records FoundNo Status Records FoundNo Status Records FoundNo Status Records FoundNo Status Records FoundNo Status Records Found INFORMATION SOURCE (unrecogn ized section and content) DATE CREATED AUTHOR 07/11/2019 [facility] DATE CREATED AUTHOR AUTHOR'S ORGANIZ ATION 08/24/2021 [facility] DATE CREATED AUTHOR AUTHOR'S ORGANIZ ATION 08/20/2023 [facility] DATE CREATED AUTHOR AUTHOR'S ORGANIZ ATION 08/20/2023 [facility] DATE CREATED AUTHOR AUTHOR'S ORGANIZ ATION 08/20/2023 [employer] DATE CREATED AUTHOR AUTHOR'S ORGANIZ ATION 08/13/2024 [facility] DATE CREATED AUTHOR AUTHOR'S ORGANIZ ATION 08/28/2024 [facility] DATE CREATED AUTHOR AUTHOR'S ORGANIZ ATION 09/08/2024 [facility] Reason for Visit (unrecogniz ed section and content) Reason Comments 6 MONTH WITH PSA Reason Comments Elevated PSA Care Teams (unrecognized sec tion and content) Survey Party Chief Relationship Specialty Start Date End Date Bo Noble MD [address] [facility] [address] [place] [address] PCP - General Family Medicine 08/24/24 FOR RECORDS PERTAINING TO PATIENTS WHO ARE OR HAVE BEEN ENROLLED IN A CHEMICAL DEPENDENCY/SUBSTANCEABUSE PROGRAM, SOME INFORMATION MAY BE OMITTED. This clinical summary was aggregated from multiple sources. Caution should be exercised in using it in the provision of clinical care. This summary normalizes information from multiple sources, and as a consequence, information in this document may materially change the coding, format and clinical context of patient data. In addition, data may be omitted in some cases. CLINICAL DECISIONS SHOULD BE BASED ON THE PRIMARY CLINICAL RECORDS. [employer] provides no warranty or guarantee of the accuracy or completeness of information in this document.
[2024-09-27 10:25] LABS: AST(SGOT) 18 U/L (15-37); Alanine Aminotransfer ALT/SGPT 25 U/L (16-61); Albumin, Serum 3.5 g/dL (3.2-5.0); Alkaline Phosphatase 130 U/L (45-117); Anion Gap 4 (5-15); BUN 30 mg/dL (7-18); BUN/Creat Ratio 22.6 RATIO (10-20); Chloride 110 mmol/L (98-107); Cholesterol 156 mg/dL (200); Creatinine, Serum 1.33 mg/dL (0.70-1.30); EST Glomerular Filtration Rate 54 mL/min (>60); Est Glom Filt Rate - Afr Amer 66 mL/min (>60); Globulin 3.4 g/dL (2.2-4.2); Glucose 108 mg/dL (74-106); High Density Lipoprotein 38 mg/dL; Potassium 4.1 mmol/L (3.5-5.1); Protein, Total 6.9 g/dL (6.4-8.2); Sodium Level 142 mmol/L (136-145); Triglycerides 132 mg/dL; Very Low Density Lipoprotein 26 mg/dL (5-40)
== END | disposition home or self-care (01) ==
LOC: MFPLAB 09:18
PROVIDERS: PCP Family Medicine; Referring Provider Family Medicine; Visit Provider Family Medicine
DX: I10 Essential (primary) hypertension (principal)
CPT/HCPCS: 36415; 80053; 80061

== ENCOUNTER → 2025-03-26 | Outpatient (CLI) | payer MEDICARE, OTHER, SELFPAY ==
[2025-03-26 11:39] LABS: Anion Gap 13 (5-15); BUN 22 mg/dL (4-19); BUN/Creat Ratio 15.8 RATIO (10-20); Calcium,Total 9.2 mg/dL (7.6-11.0); Carbon Dioxide 23.3 mmol/L (21.0-32.0); Chloride 105 mmol/L (98-108); Cholesterol 151 mg/dL (<=200); Creatinine, Serum 1.38 mg/dL (0.70-1.20); EST Glomerular Filtration Rate 50 (>60); Glucose 102 mg/dL (70-99); High Density Lipoprotein 34 mg/dL; Low Density Lipoprotein Calc. 89 mg/dL; Potassium 3.8 mmol/L (3.3-5.1); Sodium Level 140 mmol/L (133-145); Triglycerides 142 mg/dL; Very Low Density Lipoprotein 28 mg/dL (5-40); cholesterol:hdl ratio screen 4.51
== END | disposition home or self-care (01) ==
LOC: MFPLAB 08:48
PROVIDERS: PCP Family Medicine; Referring Provider Family Medicine; Visit Provider Family Medicine
DX: I10 Essential (primary) hypertension (principal)
CPT/HCPCS: 36415; 80048; 80061

== ENCOUNTER 2025-06-09 10:05 | Emergency (ER) | payer MEDICARE, OTHER, SELFPAY ==
[2025-06-09 10:07] VITALS: BP 127/46; PULSE 60; RESP 16; TEMP 36.5; O2SAT 95; BMI 26.9
--- NOTE | 2025-06-09 10:51 | EX.ED.DYSGE1 ---
HPI History of Present Illness Chief Complaint: Rash Informant: patient Narrative Narrative: Patient is a 89-year-old male with history of prediabetes (is not on any diabetic medications), hypertension and gout presenting with rash that developed at 630 last night. He describes it as itchy. Is initially on the underside of his upper arms and back and behind his legs. states she put hydrocortisone ointment on it and it got better however it came back again today which is what prompted to come to the emergency room. In addition he has had wet cough is worsening over the past few weeks. No report of any fevers or chills. No URI symptoms or GI symptoms reported. No sores or lesions in his mouth or difficulty/painful urination or stooling. No wheezing reported. No swelling of the mouth. No new medications or supplements/exposures. Has never had hives before. Did not take any oral medications for symptoms prior to arrival. Does note that over the past few weeks has been having some increased pain at the base of his left toe and it feels like his gout. Denies any injury to that area. [facility] Home Medications ?Medication ?Instructions ?Recorded ?Last Taken ?Type hydrochlorothiazide 25 mg tablet 25 mg PO DAILY 02/17/14 06/09/25 History amlodipine 10 mg tablet 10 mg PO DAILY 06/09/25 06/09/25 History cetirizine 10 mg capsule (Zyrtec) 10 mg PO BID PRN allergy symptoms 06/09/25 Unknown Rx #10 caps cholecalciferol (vitamin D3) 50 50 mcg PO DAILY 06/09/25 06/09/25 History mcg (2,000 unit) capsule glucosamine sulfate 500 mg tablet 2,000 mg PO DAILY 06/09/25 06/09/25 History (Glucosamine) losartan 50 mg tablet 50 mg PO DAILY 06/09/25 06/09/25 History prednisone 20 mg tablet 40 mg (2 x 20 mg) PO DAILY #8 tabs 06/09/25 Unknown Rx Allergy/AdvReac Type Severity Reaction Status Date / Time Penicillins Allergy Rash Verified 06/09/25 10:07 Social History Smoking Status: Former smoker ROS ROS ED Constitutional Constitutional ED: Denies chills or fever(s) Eyes Eyes: Denies change in vision ENT ENT ED: Reports other Details: Right denies facial swelling ; Denies rhinorrhea or sore throat Cardiovascular Cardiovascular: Denies chest pain Respiratory/Chest Respiratory/Chest: Reports cough and sputum; Denies dyspnea Gastrointestinal Gastrointestinal: Denies abdominal pain, nausea or vomiting Musculoskeletal Musculoskeletal: Reports arthralgias and other Details: Left great toe pain ; Denies myalgias Integumentary Reports rash Neurologic Neurologic: Denies weakness EXAM Physical Exam Const Vital Signs: 06/09/25 10:07 06/09/25 14:02 Temperature 97.7 F L 97.7 F L Temperature Source Oral Pulse Rate 60 70 Respiratory Rate 16 16 Blood Pressure 127/46 H 127/46 H Blood Pressure Mean 73 73 Pulse Ox 95 95 Oxygen Delivery Method Room Air Positive well nourished and well developed General Appearance ED: well developed and NAD HEENT Reports moist mucous membranes HEENT Narrative: No oral lesions appreciated, Normal buccal mucosa. No angioedema appreciated. Normal uvula. Midline. Eyes PERRL and EOMs intact bilaterally Neck supple and no JVD Chest Wall inspection of chest normal and palpation of chest normal Resp normal respiratory effort and clear to auscultation bilaterally Auscultation: Negative for rales, rhonchi or wheezes Cardio regular rate and regular rhythm GI normal to inspection, nondistended, normoactive bowel sounds and non-tender Palpation: soft; Negative for tender or guarding Extremity normal to inspection Extremity Narrative: Mild tenderness palpation of the left first MTP. Mild overlying erythema. No short arc range of motion pain of the great toe. No associated lymphangitic streaking or effusion present. General Extremety ED: Negative for edema General Extremity: Negative for edema Neuro oriented x3 Sensorium / Orientation: alert Motor Exam: Negative for general weakness Psych mental status grossly normal Skin Skin Narrative: Scattered urticaria on the extremities (more pronounced in the upper extremities) and back. MDM MDM MDM Narrative Medical decision making narrative: Patient evaluated for cough as well as itchy rash. Cough has been going on for couple weeks to a month. Is nonproductive. Rash consistent urticaria. No findings consistent with anaphylaxis. Unclear source. He does also report a wet cough. Vital signs are normal. 95% on room air. Is clear breath sounds. Chest x-ray is obtained which is more consistent with emphysema but there is also an anterior mediastinal opacity. Given his cough and rash concern for possible need of paraneoplastic syndrome. CT of the chest obtained does not show any acute process. He does have some small bilateral pulmonary nodules. Calcification correlated with a pleural calcified plaques. Patient and family informed of findings. Will start patient on prednisone in addition to Zyrtec. He has improvement after Benadryl in the emergency room. Following up with Primary Care Doctor. Given Return Precautions. Discharged Home in Stable Condition. Given First Dose of Prednisone in the Emergency Room Radiography Diagnostic Testing: Clinical Impression(s) from Imaging Studies Chest X-Ray 06/09/25 11:05 IMPRESSION: 1. Findings of emphysema. 2. Anterior mediastinal opacity. Recommend nonemergent CT chest for further evaluation if not recently performed. Reading Location: [facility] Chest CT 06/09/25 12:13 IMPRESSION: 1. No acute thoracic finding. 2. Findings of mild emphysema with small bilateral pulmonary nodules. Optional follow-up CT chest in 12 months to evaluate for stability if patient is high risk per Fleischner guidelines. Reading Location: [facility] Discharge Plan Triage Chief Complaint: Rash ED Provider: Cat Leal Dx/Rx/DC Orders Clinical Impression: Urticaria, Acute gout of left foot, Incidental pulmonary nodule Instructions: ED Hives (Adult), ED Gout Diet Prescriptions: New prednisone 20 mg tablet 40 mg PO DAILY Qty: 8 0RF Zyrtec 10 mg capsule 10 mg PO BID PRN (Reason: allergy symptoms) Qty: 10 0RF No Action hydrochlorothiazide 25 MG tablet 25 mg PO DAILY Patient Comments: WATER PILL losartan 50 mg tablet 50 mg PO DAILY amlodipine 10 mg tablet 10 mg PO DAILY glucosamine sulfate [Glucosamine] 500 mg tablet 2,000 mg PO DAILY Rx Instructions: administer with a meal cholecalciferol (vitamin D3) 50 mcg (2,000 unit) capsule 50 mcg PO DAILY Primary Care Provider: Bo Ambrosio Referrals: Bo Ambrosio MD [Primary Care Provider] - Activity Restrictions/Additional Instructions: You were placed on steroids and Zyrtec to help with the hives. The exact cause is not clear could be an environmental allergen or even a virus that is causing it. The steroid should also help with the gout in your left foot. Your CT of the chest did show emphysematous changes to the lungs as well as pulmonary nodule nodules with optional follow-up CT in 12 months to evaluate for stability. This can be followed up with your family doctor. There is incidental finding of calcification in your lung lining called pleural plaques abnormality seen on your initial chest x-ray. This can be followed up with your primary care doctor as well for monitoring. It does not require any intervention at this time. Print Language: Armenian Disposition Disposition: Home, Self Care Discharge Date/Time: 06/09/25 14:02
--- NOTE | 2025-06-09 11:05 | RAD_ITS ---
PROCEDURE: CHEST PA AND LATERAL 06/09/2025 REASON FOR EXAM: COUGH TECHNIQUE: CHEST PA AND LATERAL COMPARISON: None. FINDINGS: Hardware: None. Heart: Heart size is mildly enlarged. Mediastinum: Rounded, ill-defined opacity within the anterior mediastinum, visualized on lateral imaging. Lungs: Findings of emphysema with scattered areas of scarring. Bibasilar atelectasis. No obvious focal consolidation, pleural effusion or pneumothorax. Bones: Degenerative changes are identified within the thoracic spine. RAD/Chest PA and Lateral IMPRESSION: 1. Findings of emphysema. 2. Anterior mediastinal opacity. Recommend nonemergent CT chest for further ev aluation if not recently performed. Reading Location: [id number]
--- OUTSIDE RECORDS SUMMARY | 2025-06-09 11:18 | XMS RPT_ITS | CCD ---
Author Organization [facility] Inform ion Partnership WANT AD SUPERVISOR [facility] Care Team Providers Care Extractions Technician Name Role Phone Pending Provider Unavailable Unavailable MD VINCENT FRAZIER Attending Unavailabl e TIARA, MD VINCENT SILVA Referring Unavailabl e Pending, Provider Primary Care Unavailable MD VINCENT FRAZIER Attending Unavailabl e FRAZIER, MD VINCENT SILVA Referring Unavailabl e Pending, Provider Primary Care Unavailable MD VINCENT FRAZIER Attending Unavailabl e FRAZIER, MD VINCENT SILVA Referring Unavailabl e Pending, Provider Primary Care Unavailable Unavailable Primary Care Provider Unavailbautista e TAIRA, VINCENT Cavazos Referring Unavailable BO NOBLE Primary Care Unavailable Bo Noble MD Primary Care Provider Bo Noble MD Primary Care Provider SELF Referring Unavailable BHAVNA KERN II Attending Unavailabl e BO NOBLE Primary Care Unavailable Hebert, Bo Attending Unavailable Noble, Bo Referring Unavailable Noble, Bo Primary Care Unavailable Hebert, Bo Referring Unavailable Hebert, Bo Primary Care Unavailable Hebert, Bo Attending Unavailable FRAZIER, VINCENT Cavazos Attending Unavailable FRAZIER, VINCENT Cavazos Attending Unavailable BO NOBLE Primary Care Unavailable SONIA CROW Attending Unavailable BO NOBLE Primary Care Unavailable Allergies Allergy Classification Reported Allergen(s) Allergy Type Date of Onset Reaction(s) Facility (19 sources) Penicillins; Translations: [Penicillins] Allergy to drug (finding) 02-18-20 14 [facility] Repository (19 sources) Sulfamethoxazole / Trimethoprim; Translations: [Bactrim] Drug Allergy 02-15-20 24 Unknown [facility] Work Phone: (4 sources) Penicillins Allergy to substance 02-18-20 14 [facility] (10 sources) Doxycycline; Translations: [DOXYCYCLINE] Drug Allergy 11-06-20 21 Unknown [facility] Work Phone: (4 sources) Penicillins Drug Allergy 02-18-20 14 [facility] Work Phone: (3 sources) Sulfamethoxazole / Trimethoprim; Translations: [SULFAMETHOXAZOLE-TR IMETHOPRIM] Drug Allergy 02-15-20 24 [facility] Repository (1 source) ALLERGIES NOT ON FILE; Translations: [ALLERGIES NOT ON FILE] Propensity to adverse reactions (disorder) [facility] (2 sources) Seasonal allergy; Translations: [SEASONAL ALLERGIES] Allergy to substance 05-29-20 15 [facility] (1 source) Penicillins Drug allergy (disorder) 02-18-20 14 [facility] (1 source) Penicillins Drug Allergy 02-18-20 14 Aida Jasso [facility] Work Phone: Medications Current Medications Medication Drug Class(es) Dates Sig (Normalized) Sig (Original) acetaminophen 300 mg / HYDROcodone bitartrate 5 mg oral tablet (5 sources) Opioid Agonist Start: 02-19-2014 take 1 tablet by mouth every four hours as needed Hydrocodone-Acet aminophen (Vicodin 5-300 Mg Tablet) 1 EACH tablet Active 1 TABLET PO EVERY 4 HOURS NEEDED February 19, 2014 12:00am May substitute Hydrocodone/Acet aminophen 5/325 mg amLODIPine 10 mg oral tablet (20 sources) Dihydropyridine Calcium Channel Josefa Start: 02-17-2014 amLODIPine (Norvasc) 10 mg tablet Take by mouth. 02/17/2014 Active Start: 02-17-2014 take 1 tablet by nilda th once daily amLODIPine (NORVASC) 5 mg tablet Take 1 tablet by mouth once daily. 0 02/19/2014 Active amLODIPine Besyl ate 10 MG Oral Tablet Quantity: 0 Refills: 0 Ordered: 20-Jan-2021 DO Active benoxinate hydrochloride 4 mg/ml / fluorescein sodium 3 mg/ml ophthalmic solution (2 sources) Diagnostic Dye Start: 02-07-2025 End: 02-08-2025 fluorescein-benoxinate 0.3-0.4 % 1 Drop (FLURESS) Start: 02-07-2025 End: 02-08-2025 1 Drop, BOTH EYES, DIRECT ED, Starting on Wed02/07/25 at 1530, Until Wed02/08/25 at 0329, Administer for applanation tonometry. In the event of a Fluress shortage, administer Priscilla-Fluor 1 drop into both eyes as directed for applanation tonometry ciprofloxacin 500 mg oral tablet (5 sources) Quinolone Antimicrobial Start: 02-17-2014 take 500 mg by mouth twice daily Ciprofloxacin Hcl Active 500 MG PO TWICE A DAY February 17, 2014 12:00am Glucosamine (6 sources) GLUCOSAMINE HCL ORAL Take by mouth. Active GLUCOSAMINE HCL ORAL Take by mouth. 0 Active hydroCHLOROthiazide 25 mg oral tablet (20 sources) Thiazide Diuretic Start: 02-17-2014 take 1 tablet by mouth once daily hydroCHLOROthiazide (HYDRODiuril) 25 mg tablet Take 1 tablet (25 mg) by mouth once daily. 02/17/2014 Active hydroCHLOROthiaz jesús 25 MG Oral Tablet Quantity: 0 Refills: 0 Ordered: 29-Dec-2019 DO Active losartan potassium 50 mg oral tablet (18 sources) Angiotensin 2 Receptor Josefa take 1 tablet by mouth once daily losartan (Cozaar) 50 mg tablet Take 1 tablet (50 mg) by mouth once daily. Active Losartan Potassi um 50 MG Oral Tablet Quantity: 0 Refills: 0 Ordered: 25-Aug-2021 DO Active microencapsulated potassium chloride 20 meq extended release oral tablet (6 sources) Start: 02-19-2014 take 1 tablet by mouth three times daily potassium chloride SR (KLOR-CON M20) 20 mEq tablet Take 1 tablet by mouth three times daily. 02/19/2014 Active Start: 02-19-2014 Potassium Chlo ride (Klor-Con 10) 10 MEQ tablet extended release Active 20 MEQ PO THREE TIMES A DAY February 19, 2014 12:00am tropicamide 10 mg/ml ophthalmic solution (2 sources) Anticholinergic Start: 02-07-2025 End: 02-08-2025 tropicamide 1 % 1 Drop (MYDRIACYL) Start: 02-07-2025 End: 02-08-2025 1 Drop, BOTH EYES, DIRECT ED, Starting on Wed02/07/25 at 1530, Until Wed02/08/25 at 0329, Administer for dilation Zinc (1 source) Zinc 15 mg tab T janet by mouth. Active zinc sulfate 66 mg oral tabl et (5 sources) zinc sulfate (Zi nc-15) 66 mg tablet Take by mouth. Active zinc sulfate (Zi nc-15) 66 mg tablet Take by mouth. 0 Active Completed/Discontinued Medications Medication Drug Class(es) Dates Sig (Normalized) Sig (Original) gadoterate meglumine (Dotarem) 0.5 mmol/mL contrast injection 15 mL (1 source) Start: 08-24-2024 End: 08-24-2024 inject 15 mL intravenously once 15 mL, intravenous, Once in imaging, Starting on Yue 08/24/24 at 1151, For 1 dose, Administer undiluted as rapid I.V. bolus injection lisinopril 10 mg oral tablet (1 source) Angiotensin Converting Enzyme Inhibitor Start: 10-28-2020 Lisinopril 10 MG Oral Tablet Quantity: 90 Refills: 0 Ordered: 28-Oct-2020 DO Start : 28-Oct-2020 Active Problems Active Problems Problem Classification Problem Date Documented Da te Episodic/Chronic Blindness and vision defects (6 sources) Bilateral hyperopia of eyes; Translations: [Hypermetropia, bilateral] Onset: 05-29-2015 02-07-2025 Episodic Cataract (2 sources) Bilateral senile combined form cataracts of eyes; Translations: [Combined forms of age-related cataract, bilateral] Onset: 05-29-2015 02-07-2025 Chronic Essential hypertension (1 source) Essential (primary) hypertension; Translations: [Essential (primary) hypertension] Onset: 03-29-2025 Chronic Glaucoma (1 source) Preglaucoma, unspecified, bilateral; Translations: [Preglaucoma, unspecified] 02-07-2025 Chronic Hyperplasia of prostate (20 sources) Benign prostatic hypertrophy without outflow obstruction; Translations: [Hypertrophy (benign) of prostate without urinary obstruction and other lower urinary tract symptom (LUTS)] Onset: 02-04-2024 02-15-2024 Chronic Other male genital disorders (20 sources) Male erectile dysfunction, unspecified; Translations: [Erectile dysfunction] Onset: 02-15-2024 02-15-2024 Chronic Past or Other Problems Problem Classification Problem Date Documented Date Episodic/Chronic Biliary tract disease (1 source) Biliary calculus; Translations: [Calculus of gallbladder with chronic cholecystitis without obstruction] Onset: 02-19-2014 02-19-2014 Episodic Genitourinary symptoms and ill-defined conditions (20 sources) Nocturia; Translations: [Nocturia] Onset: 02-15-2024 02-15-2024 Episodic Other screening for suspected conditions (not mental disorders or infectious disease) (20 sources) Raised prostate specific antigen; Translations: [Elevated prostate specific antigen [PSA]] Onset: 02-15-2024 02-15-2024 Episodic Unclassified (5 sources) Onset: 02-16-2024 Resolved: 04-09-2025 02-16-2024 Results Test Name Value Interpretation Reference Range Facility PSA, TOTALon 04-03-2025 PSA, TOTAL 18.19 ng/mL High < OR = 4.00 [facility] Comment on above: Result Comment: The total PSA value from this assay system is standardized against the WHO standard. The test result will be approximately 20% lower when compared to the equimolar-standardized total PSA (Candy Deonte). Comparison of serial PSA results should be interpreted with this fact in mind. This test was performed using the Siemens chemiluminescent method. Values obtained from different assay methods cannot be used interchangeably. PSA levels, regardless of value, should not be interpreted as absolute evidence of the presence or absence of disease. Performed By: #### [id number] #### [facility] [address], [address] [place] [address] Steeping Press Tender: Ashkan Junior MD Basic Metabolic Profile (BMP )on 03-26-2025 BUN/CRE 15.8 RATIO Normal 10-20 [facility] Comment on above: Performed By: #### L 500.4100, L500.2500 #### [facility] [address] [place], [address] Calcium [Mass/Vol] 9.2 mg/dL Normal 7.6-11.0 [facility] Comment on above: Performed By: #### L 500.4100, L500.2500 #### [facility] [address] [place], [address] Chloride [Moles/Vol] 105 mmol/L Normal 98-108 [facility] Comment on above: Performed By: #### L 500.4100, L500.2500 #### [facility] [address] [place], [address] CO2 [Moles/Vol] 23.3 mmol/L Normal 21.0-32.0 [facility] Comment on above: Performed By: #### L 500.4100, L500.2500 #### [facility] [address] [place], [address] Creatinine [Mass/Vol] 1.38 mg/dL High 0.70-1.20 [facility] Comment on above: Performed By: #### L 500.4100, L500.2500 #### [facility] [address] [place], [address] GAP 13 Normal 5-15 [facility] Comment on above: Performed By: #### L 500.4100, L500.2500 #### [facility] [address] [place], [address] GFR/1.73 sq M.predicted among non-blacks MDRD (S/P/Bld) [Vol rate/Area] 50 mL/min/{1.73_m2} Low >60 [facility] Comment on above: Result Comment: mL/m in/1.73m2 CKD-EPI Creatinine Equation (2020) Performed By: #### L 500.4100, L500.2500 #### [facility] [address] [place], [address] Glucose [Mass/Vol] 102 mg/dL High 70-99 [facility] Comment on above: Performed By: #### L 500.4100, L500.2500 #### [facility] [address] [place], [address] Potassium [Moles/Vol] 3.8 mmol/L Normal 3.3-5.1 [facility] Comment on above: Performed By: #### L 500.4100, L500.2500 #### [facility] [address] [place], [address] Sodium [Moles/Vol] 140 mmol/L Normal 133-145 [facility] Comment on above: Performed By: #### L 500.4100, L500.2500 #### [facility] [address] [place], [address] Urea nitrogen [Mass/Vol] 22 mg/dL High 4-19 [facility] Comment on above: Performed By: #### L 500.4100, L500.2500 #### [facility] [address] [place], [address] Lipid Profileon 03-26-2025 CHOL:HDL 4.51 Normal [facility] Comment on above: Performed By: #### L 500.4100, L500.2500 #### [facility] [address] [place], [address] Cholesterol [Mass/Vol] 151 mg/dL Normal <=200 [facility] Comment on above: Result Comment: Chol esterol level, Desirable <200 mg/dL Borderline high cholesterol 200-239 mg/dL High cholesterol >=240 mg/dL Recommendations of the NCEP Adult Treatment Panel for the following risk-cutoff thresholds for the [place] population. Performed By: #### L 500.4100, L500.2500 #### [facility] [address] [place], [address] Cholesterol in HDL [Mass/Vol] 34 mg/dL Low [facility] Comment on above: Result Comment: Afia onal Cholesterol Education Program (NCEP) guidelines: <40 mg/dL: Low HDL-cholesterol (major risk factor for CHD) >= 60 mg/dL: High HDL-cholesterol (negative risk factor for CHD) HDL-cholesterol is affected by a number of factors, e.g. smoking, exercise, hormones, sex and age. Performed By: #### L 500.4100, L500.2500 #### [facility] [address] [place], [address] Cholesterol in LDL [Mass/Vol] 89 mg/dL Normal [facility] Comment on above: Result Comment: Bord ztrbgu=743-467 mg/dL Higher Qjxl=364 mg/dL or greater Performed By: #### L 500.4100, L500.2500 #### [facility] [address] [place], [address] Cholesterol in VLDL [Mass/Vol] 28 mg/dL Normal 5-40 [facility] Comment on above: Performed By: #### L 500.4100, L500.2500 #### [facility] [address] [place], [address] Triglyceride [Mass/Vol] 142 mg/dL Normal [facility] Comment on above: Result Comment: The drugs N-Acetylcysteine and Metamizole may falsely depress this assay. Normal range: <150 mg/dL Borderline High: 150-199 mg/dL High: 200-499 mg/dL Very High: >500 mg/dL Performed By: #### L 500.4100, L500.2500 #### [facility] [address] [place], [address] Comprehensive Metabolic Prof [facility] 09-27-2024 Albumin [Mass/Vol] 3.5 g/dL Normal 3.2-5.0 [facility] Comment on above: Order Comment: Order Date: 09/25/24 Order Info: [id number] - CMP Order Info: [id number] - LIPID Performed By: #### L 500.4050 #### [facility] [address] [place], [address] Albumin/Globulin [Mass ratio] 1.0 {ratio} Normal 0.9-2.4 [facility] Comment on above: Order Comment: Order Date: 09/25/24 Order Info: [id number] - CMP Order Info: [id number] - LIPID Performed By: #### L 500.4050 #### [facility] [address] [place], [address] ALK P 130 U/L High 45-117 [facility] Comment on above: Order Comment: Order Date: 09/25/24 Order Info: [id number] - CMP Order Info: [id number] - LIPID Performed By: #### L 500.4050 #### [facility] [address] [place], [address] ALT [Catalytic activity/Vol] 25 U/L Normal 16-61 [facility] Comment on above: Order Comment: Order Date: 09/25/24 Order Info: [id number] - CMP Order Info: [id number] - LIPID Performed By: #### L 500.4050 #### [facility] [address] [place], [address] AST [Catalytic activity/Vol] 18 U/L Normal 15-37 [facility] Comment on above: Order Comment: Order Date: 09/25/24 Order Info: 07-1 - CMP Order Info: [id number] - LIPID Performed By: #### L 500.4050 #### [facility] [address] [place], [address] Bilirubin [Mass/Vol] 0.80 mg/dL Normal 0.20-1.00 [facility] Comment on above: Order Comment: Order Date: 09/25/24 Order Info: [id number] - CMP Order Info: [id number] - LIPID Result Comment: For patients on eltrombopag therapy, use of [facility]ension [place] TBIL is not recommended. Performed By: #### L 500.4050 #### [facility] [address] [place], [address] BUN/CRE 22.6 RATIO High 10-20 [facility] Comment on above: Order Comment: Order Date: 09/25/24 Order Info: [id number] - CMP Order Info: [id number] - LIPID Performed By: #### L 500.4050 #### [facility] [address] [place], [address] CA,Total 9.0 mg/dL Normal 8.5-10.1 [facility] Comment on above: Order Comment: Order Date: 09/25/24 Order Info: 0786 - CMP Order Info: [id number] - LIPID Performed By: #### L 500.4050 #### [facility] [address] [place], [address] Chloride [Moles/Vol] 110 mmol/L High 98-107 [facility] Comment on above: Order Comment: Order Date: 09/25/24 Order Info: 785- - CMP Order Info: [id number] - LIPID Performed By: #### L 500.4050 #### [facility] [address] [place], [address] CO2 [Moles/Vol] 27.0 mmol/L Normal 21.0-32.0 [facility] Comment on above: Order Comment: Order Date: 09/25/24 Order Info: [id number] - CMP Order Info: [id number] - LIPID Performed By: #### L 500.4050 #### [facility] [address] [place], [address] Creatinine [Mass/Vol] 1.33 mg/dL High 0.70-1.30 [facility] Comment on above: Order Comment: Order Date: 09/25/24 Order Info: [id number] - CMP Order Info: [id number] - LIPID Result Comment: The validity of the calculated GFR GFRAA in patients over 70 years has not been determined. Clinical correlation is essential. Performed By: #### L 500.4050 #### [facility] [address] [place], [address] EST GFR - AA 66 mL/min Normal >60 [facility] Comment on above: Order Comment: Order Date: 09/25/24 Order Info: 07 - CMP Order Info: [id number] - LIPID Result Comment: Afri can Cong[place]ese GFR Calc Performed By: #### L 500.4050 #### [facility] [address] [place], [address] GAP 4 Low 5-15 [facility] Comment on above: Order Comment: Order Date: 09/25/24 Order Info: [id number]- - CMP Order Info: [id number] - LIPID Performed By: #### L 500.4050 #### [facility] [address] [place], [address] GFR/1.73 sq M.predicted among non-blacks MDRD (S/P/Bld) [Vol rate/Area] 54 mL/min/{1.73_m2} Low >60 [facility] Comment on above: Order Comment: Order Date: 09/25/24 Order Info: 07- - CMP Order Info: [id number] - LIPID Result Comment: Non- GFR Calc Performed By: #### L 500.4050 #### [facility] [address] [place], [place], [address] Globulin (S) [Mass/Vol] 3.4 g/dL Normal 2.2-4.2 [facility] Comment on above: Order Comment: Order Date: 09/25/24 Order Info: 0786 - CMP Order Info: [id number] - LIPID Performed By: #### L 500.4050 #### [facility] [address] [place], [place], [address] Glucose [Mass/Vol] 108 mg/dL High 74-106 [facility] Comment on above: Order Comment: Order Date: 09/25/24 Order Info: 0786- - CMP Order Info: [id number] - LIPID Result Comment: Fast ing Glucose result from 100 to 125 mg/dL suggests IMPAIRED HOMEOSTASIS per A.D.A. criteria. Performed By: #### L 500.4050 #### [facility] [address] [place], [place], [id number] Potassium [Moles/Vol] 4.1 mmol/L Normal 3.5-5.1 [facility] Comment on above: Order Comment: Order Date: 09/25/24 Order Info: [id number] - CMP Order Info: [id number] - LIPID Performed By: #### L 500.4050 #### [facility] [address] [place], [address] Sodium [Moles/Vol] 142 mmol/L Normal 136-145 [facility] Comment on above: Order Comment: Order Date: 09/25/24 Order Info: 0786- - CMP Order Info: [id number] - LIPID Performed By: #### L 500.4050 #### [facility] [address] [place], [address] T PROT 6.9 g/dL Normal 6.4-8.2 [facility] Comment on above: Order Comment: Order Date: 09/25/24 Order Info: 07 - CMP Order Info: [id number] - LIPID Performed By: #### L 500.4050 #### [facility] [address] [place], [address] Urea nitrogen [Mass/Vol] 30 mg/dL High 7-18 [facility] Comment on above: Order Comment: Order Date: 09/25/24 Order Info: 0786- - CMP Order Info: [id number] - LIPID Performed By: #### L 500.4050 #### [facility] [address] [place], [address] Lipid Profileon 09-27-2024 Cholesterol [Mass/Vol] 156 mg/dL Normal 200 [facility] Comment on above: Order Comment: Order Date: 09/25/24 Order Info: 0786- - CMP Order Info: [id number] - LIPID Result Comment: <200 mg/dL Desirable 200-240 mg/dL Borderline >240 mg/dL High Risk Performed By: #### L 500.4100 #### [facility] [address] [place], [address] Cholesterol in HDL [Mass/Vol] 38 mg/dL Low [facility] Comment on above: Order Comment: Order Date: 09/25/24 Order Info: [id number] - CMP Order Info: [id number] - LIPID Result Comment: The drugs N-Acetylcysteine and Metamizole may falsely depress this assay. Reference Range HDL <40 mg/dL Low HDL Cholesterol HDL >or= 60 mg/dL High HDL Cholesterol Performed By: #### L 500.4100 #### [facility] [address] [place], [address] Cholesterol in LDL [Mass/Vol] 92 mg/dL Normal 0-130 [facility] Comment on above: Order Comment: Order Date: 09/25/24 Order Info: 07 - [facility] Order Info: [id number] - LIPID Performed By: #### L 500.4100 #### [facility] [address] [place], [address] Cholesterol in VLDL [Mass/Vol] 26 mg/dL Normal 5-40 [facility] Comment on above: Order Comment: Order Date: 09/25/24 Order Info: 07 - [facility] Order Info: [id number] - LIPID Performed By: #### L 500.4100 #### [facility] [address] [place], [address] Triglyceride [Mass/Vol] 132 mg/dL Normal [facility] Comment on above: Order Comment: Order Date: 09/25/24 Order Info: 0786- - [facility] Order Info: [id number] - LIPID Result Comment: The drugs N-Acetylcysteine and Metamizole may falsely depress this assay. Serum Triglycerides Reference Interval Normal <150 mg/dL Borderline high 150 - 199 mg/dL High 200 - 499 mg/dL Very High > or = 500 mg/dL Performed By: #### L 500.4100 #### [facility] [address] [place], [address] MR PROSTATE WITH [place] BOUNDAR IES IF PIRADS 3 OR ABOVEon 08-24-2024 MR PROSTATE WITH [place] BOUNDARIES IF PIRADS 3 OR ABOVE Interpreted By: Joselo Gentile, and Anayeli Rose STUDY: MR PROSTATE WITH [place] BOUNDARIES IF PIRADS 3 OR ABOVE; 08/24/2024 12:44 pm INDICATION: Signs/Symptoms:elev ated PSA. Per EMR, patient is an 83-year-old male with an elevated PSA of 21.1 ng/mL on 08/07/2024 and prior negative prostate biopsy in 2018. ,R97.20 Elevated prostate specific antigen (PSA) COMPARISON: Prostate MRI 02/06/2021 ACCESSION NUMBER(S): [id number] ORDERING CLINICIAN: VINCENT FRAZIER TECHNIQUE: Multiplanar MRI [...] x 4.5 cm x 5.9 cm in [id number], anterior-posterior and craniocaudal dimension. Prostate weight is [...] containing inguinal hernias, right greater than left. Db2 Developer imaging demonstrates small bilateral extratesticular spermatoceles versus [...] Rose Carrington. This study was interpreted at [facility], [place], [place]. MACRO: None Signed by: Joselo Gentile 08/27/2024 9:25 PM Dictation workstation: [id number] Normal [facility] Prostate specific Agon 08-07 Prostate specific Ag [Mass/Vol] 21.07 ng/mL High <=4.00 [facility] Comment on above: Order Comment: The F DA requires that the method used for PSA assay be reported to the physician. Values obtained with different assay methods must not be used interchangeably. This test was performed at [facility] using the [employer] PSA assay is a two-site immunoenzymatic sandwich assay. The assay is approved for measurement of prostate-specific antigen (PSA)in serum and may be used in conjunction with a digital rectal examination in men 50 years and older as an aid in detection of prostate cancer. 4-Bgeot-cfufosagb inhibitors (e.g. Proscar, Finasteride, Avodart, Dutasteride and Ashley) for the treatment of BPH have been shown to lower PSA levels by an average of 50% after 6 months of treatment. Performed By: #### 2 857-1 #### ABDALLA GENET ([id number]) [facility] ([facility]) [address] [place] [address] percentageOrdered B y: Bo Noble on 03-23-2024 Bilirubin [Mass/Vol] 0.90 mg/dL 0.20-1.00 [facility] Comment on above: For patients on eltr ombopag therapy, use of Dimension [place] TBIL is not recommended. Chloride [Moles/Vol] 107 mmol/L 98-107 [facility] Cholesterol [Mass/Vol] 139 mg/dL <200 [facility] Comment on above: <200 mg/dL Desirable 200-240 mg/dL Borderline >240 mg/dL High Risk Glucose [Mass/Vol] 104 mg/dL 74-106 [facility] Comment on above: Fasting Glucose resu lt from 100 to 125 mg/dL suggests IMPAIRED HOMEOSTASIS per A.D.A. criteria. Potassium [Moles/Vol] 3.9 mmol/L 3.5-5.1 [facility] Protein [Mass/Vol] 7.4 g/dL 6.4-8.2 [facility] Sodium [Moles/Vol] 140 mmol/L 136-145 [facility] Triglyceride [Mass/Vol] 92 mg/dL <199 [facility] Comment on above: The drugs N-Acetylcy steine and Metamizole may falsely depress this assay.Serum Triglycerides Reference Interval Normal <150 mg/dL Borderline high 150 - 199 mg/dL High 200 - 499 mg/dL Very High > or = 500 mg/dL Laboratory - Chemistry and C hemistry - challengeOrdered By: Bo Noble on 03-23-2024 Albumin/Globulin [Mass ratio] 0.8 {ratio} 0.9-2.4 [facility] ALP [Catalytic activity/Vol] 98 U/L 45-117 [facility] ALT [Catalytic activity/Vol] 20 U/L 16-61 [facility] Cholesterol in HDL [Mass/Vol] 40 mg/dL >40 [facility] Comment on above: The drugs N-Acetylcy steine and Metamizole may falsely depress this assay. Reference Range HDL <40 mg/dL Low HDL Cholesterol HDL >or= 60 mg/dL High HDL Cholesterol Cholesterol in LDL [Mass/Vol] 81 mg/dL 0-130 [facility] CO2 [Moles/Vol] 27.0 mmol/L 21.0-32.0 [facility] Globulin (S) [Mass/Vol] 4.0 g/dL 2.2-4.2 [facility] Urea nitrogen/Creatinine [Mass ratio] 16.7 mg/mg 10-20 [facility] No Panel InformationOrdered By: Bo Noble on 03-23-2024 Estimated GFR (MDRD) Amer 66 mL/min >60 [facility] Comment on above: GFR Calc Estimated GFR (MDRD) Non-Af Amer 55 mL/min >60 [facility] Comment on above: Non- GFR Calc VLDL Cholesterol 18 mg/dL 5-40 [facility] Serum or plasma calcium yamileth urement (mass/volume)Ordered By: Bo Noble on 03-23-2024 Calcium [Mass/Vol] 9.1 mg/dL 8.5-10.1 [facility] Serum or plasma creatinine m easurement (mass/volume)Ordered By: Bo Noble on 03-23-2024 Creatinine [Mass/Vol] 1.32 mg/dL 0.70-1.30 [facility] Comment on above: The validity of the calculated GFR & GFRAA in patients over 70 years has not been determined. Clinical correlation is essential. Serum or plasma urea nitroge n measurement (mass/volume)Ordered By: Bo Noble on 03-23-2024 Urea nitrogen [Mass/Vol] 22 mg/dL 7-18 [facility] Thin prep Papanicolaou smear with manual screeningOrdered By: Bo Noble on 03-23-2024 Thin prep Papanicolaou smear with manual screening 3.4 g/dL 3.2-5.0 [facility] Thin prep Papanicolaou smear with manual screening 22 U/L 15-37 [facility] Thin prep Papanicolaou smear with manual screening 6 5-15 [facility] Prostate specific Agon 02-03 Prostate specific Ag [Mass/Vol] 15.50 ng/mL High <=4.00 [facility] Comment on above: Order Comment: The F DA requires that the method used for PSA assay be reported to the physician. Values obtained with different assay methods must not be used interchangeably. This test was performed at [facility] using the [employer] PSA assay is a two-site immunoenzymatic sandwich assay. The assay is approved for measurement of prostate-specific antigen (PSA)in serum and may be used in conjunction with a digital rectal examination in men 50 years and older as an aid in detection of prostate cancer. 7-Uznlt-spizztisd inhibitors (e.g. Proscar, Finasteride, Avodart, Dutasteride and Ashley) for the treatment of BPH have been shown to lower PSA levels by an average of 50% after 6 months of treatment. Performed By: #### 2 [id number] #### ABDALLA GENET ([id number]) [facility] ([facility]) [address] [place] [address] Basophil percentageOrdered B y: Bo Noble on 09-20-2023 Chloride [Moles/Vol] 109 mmol/L 98-107 [facility] Glucose [Mass/Vol] 105 mg/dL 74-106 [facility] Comment on above: Fasting Glucose resu lt from 100 to 125 mg/dL suggests IMPAIRED HOMEOSTASIS per A.D.A. criteria. Potassium [Moles/Vol] 3.9 mmol/L 3.5-5.1 [facility] Sodium [Moles/Vol] 141 mmol/L 136-145 [facility] Laboratory - Chemistry and C hemistry - challengeOrdered By: Bo Noble on 09-20-2023 CO2 [Moles/Vol] 27.0 mmol/L 21.0-32.0 [facility] Urea nitrogen/Creatinine [Mass ratio] 17.6 mg/mg 09-17 [facility] No Panel InformationOrdered By: Bo Noble on 09-20-2023 Estimated GFR (MDRD) Amer 67 mL/min >60 [facility] Comment on above: GFR Calc Estimated GFR (MDRD) Non-Af Amer 55 mL/min >60 [facility] Comment on above: Non- GFR Calc Serum or plasma calcium yamileth urement (mass/volume)Ordered By: Bo Noble on 09-20-2023 Calcium [Mass/Vol] 8.9 mg/dL 8.5-10.1 [facility] Serum or plasma creatinine m easurement (mass/volume)Ordered By: Bo Noble on 09-20-2023 Creatinine [Mass/Vol] 1.31 mg/dL 0.70-1.30 [facility] Comment on above: The validity of the calculated GFR & GFRAA in patients over 70 years has not been determined. Clinical correlation is essential. Serum or plasma urea nitroge n measurement (mass/volume)Ordered By: Bo Noble on 09-20-2023 Urea nitrogen [Mass/Vol] 23 mg/dL 7-18 [facility] Thin prep Papanicolaou smear with manual screeningOrdered By: Bo Noble on 09-20-2023 Thin prep Papanicolaou smear with manual screening 5 5-15 [facility] Office Visit (Urology)on Follow-up visit Diagnoses/Problems Assessed [...] urgency but no frequency ... No dysuria..No hematuria...Nocturi a 1x. No medications for LUT's... ED is chronic. No medications for this. Review of Systems Constitutional: No fever, No chills. Eye: Negative. Ear/Nose/Mouth/Thro at: Negative. Respiratory: No shortness of breath, No cough. Cardiovascular: No chest pain, No peripheral edema. Gastrointestinal: No nausea, Genitourinary: Negative except as documented in history of present illness. Hematology/Lymphati cs: Patient denies being on blood thinners.. Endocrine: [...] MG Oral Tablet Vitals Vital Signs Recorded: [id number] 10:59AM Heart Rate65 [id number] Ghukoezxy49 Kyhlda929 lb 8 oz BMI Qddjuruvhj57.52 kg/m2 BSA Calculated1.87 Tobacco Useb) No PHQ-2 [...] appearance normal Respiratory: Respiratory effort is normal Gastrointestinal:Ab domen is not tender Genitourinary: Kidneys: Not palpable Bilaterally Bladder: Not palpable or tender Scrotum: No mass. No Hydrocele Epididymis: BILATERAL spermatocele. Not tender Testicles: no mass Urethra: No Discharge Penis: WNL...No lesions. Prostate: Symmetric. No Nodules. BENIGN Seminal Vesicles: No mass Sphincter Tone: normal Signatures Electronically signed by : Vincent Frazier II, MD; Aug 18 2023 11:12AM EST (Author) [facility] Screening.on 023 Adult depression screening assessment No [facility] [place] [facility] Work Phone: Fall risk assessment a) No falls within the last year GO-Afadjaw-Jfz [facility] Work Phone: Tobacco use status CPHS b) No OO-Jimlbqz-Dlj land Work Phone: PROSTATE SPECIFIC AGon 08-09 Prostate specific Ag [Mass/Vol] 15.92 ng/mL High 0.00 - 4.00 [facility] Comment on above: Result Comment: The FDA requires that the method used for PSA assay be reported to the physician. Values obtained with different assay methods must not be used interchangeably. This test was performed at [facility] using the [employer] PSA assay is a two-site immunoenzymatic sandwich assay. The assay is approved for measurement of prostate-specific antigen (PSA)in serum and may be used in conjunction with a digital rectal examination in men 50 years and older as an aid in detection of prostate cancer. 8-Iebxx-depnjbhjp inhibitors (e.g. Proscar, Finasteride, Avodart, Dutasteride and Ashley) for the treatment of BPH have been shown to lower PSA levels by an average of 50% after 6 months of treatment. Performed By: #### P SA #### [place] [id number] Prostate Specific Antigenon 08-09-2023 Prostate specific Ag [Mass/Vol] 15.92 ng/mL above high threshold See Below RR-Wztmlld-[facility]ri [facility] 232 DO Work Phone: Comment on above: Reference Range: 0.0 0 - 4.00The FDA requires that the method used for PSA assay be reported to the physician. Values obtained with different assay methods must not be used interchangeably. This testwas performed at [facility] using the [employer] PSA assay is a two-site immunoenzymatic sandwich assay. The assay is approved for measurement of prostate-specific antigen (PSA)in serum and may be used in conjunction with a digital rectal examination in men 50 years and older as an aid in detection of prostate cancer.1-Iqjcl-pgieomqac inhibitors (e.g. Proscar, Finasteride, Avodart, Dutasteride and Ashley) for the treatment of BPH have been shown to lower PSA levels by an average of 50% after 6 months of treatment. Basophil percentageOrdered B y: Dr. Noble on 03-22-2023 Bilirubin [Mass/Vol] 0.70 mg/dL 0.20-1.00 [facility] Comment on above: For patients on eltr ombopag therapy, use of Dimension [place] TBIL is not recommended. Chloride [Moles/Vol] 108 mmol/L 98-107 [facility] Cholesterol [Mass/Vol] 155 mg/dL <200 [facility] Comment on above: <200 mg/dL Desirable 200-240 mg/dL Borderline >240 mg/dL High Risk Glucose [Mass/Vol] 101 mg/dL 74-106 [facility] Comment on above: Fasting Glucose resu lt from 100 to 125 mg/dL suggests IMPAIRED HOMEOSTASIS per A.D.A. criteria. Potassium [Moles/Vol] 4.0 mmol/L 3.5-5.1 [facility] Protein [Mass/Vol] 7.3 g/dL 6.4-8.2 [facility] Sodium [Moles/Vol] 139 mmol/L 136-145 [facility] Triglyceride [Mass/Vol] 202 mg/dL <199 [facility] Comment on above: The drugs N-Acetylcy steine and Metamizole may falsely depress this assay.Serum Triglycerides Reference Interval Normal <150 mg/dL Borderline high 150 - 199 mg/dL High 200 - 499 mg/dL Very High > or = 500 mg/dL Laboratory - Chemistry and C hemistry - challengeOrdered By: Dr. Noble on 03-22-2023 ALP [Catalytic activity/Vol] 120 U/L 45-117 [facility] ALT [Catalytic activity/Vol] 28 U/L 16-61 [facility] CO2 [Moles/Vol] 30.0 mmol/L 21.0-32.0 [facility] Globulin (S) [Mass/Vol] 3.7 g/dL 2.2-4.2 [facility] Urea nitrogen/Creatinine [Mass ratio] 18.7 mg/mg 10-20 [facility] No Panel InformationOrdered By: Dr. Noble on 03-22-2023 Estimated GFR (MDRD) Amer 65 mL/min >60 [facility] Comment on above: GFR Calc Estimated GFR (MDRD) Non-Af Amer 54 mL/min >60 [facility] Comment on above: Non- GFR Calc Serum or plasma albumin yamileth urement (mass/volume)Ordered By: Dr. Noble on 03-22-2023 Albumin [Mass/Vol] 3.6 g/dL 3.2-5.0 [facility] Serum or plasma albumin/glob ulin mass ratioOrdered By: Dr. Noble on 03-22-2023 Albumin/Globulin [Mass ratio] 1.0 {ratio} 0.9-2.4 [facility] Serum or plasma calcium yamileth urement (mass/volume)Ordered By: Dr. Noble on 03-22-2023 Calcium [Mass/Vol] 9.0 mg/dL 8.5-10.1 [facility] Serum or plasma cholesterol in HDL measurement (mass/volume)Ordered By: Dr. Noble on 03-22-2023 Cholesterol in HDL [Mass/Vol] 32 mg/dL >40 [facility] Comment on above: The drugs N-Acetylcy steine and Metamizole may falsely depress this assay. Reference Range HDL <40 mg/dL Low HDL Cholesterol HDL >or= 60 mg/dL High HDL Cholesterol Serum or plasma cholesterol in VLDL measurement (mass/volume)Ordered By: Dr. Noble on 03-22-2023 Cholesterol in VLDL [Mass/Vol] 40 mg/dL 5-40 [facility] Serum or plasma creatinine m easurement (mass/volume)Ordered By: Dr. Noble on 03-22-2023 Creatinine [Mass/Vol] 1.34 mg/dL 0.70-1.30 [facility] Comment on above: The validity of the calculated GFR & GFRAA in patients over 70 years has not been determined. Clinical correlation is essential. Serum or plasma low density lipoprotein (LDL) cholesterol measurement (mass/volume)Ordered By: Dr. Noble on 03-22-2023 Cholesterol in LDL [Mass/Vol] 83 mg/dL 0-130 [facility] Serum or plasma urea nitroge n measurement (mass/volume)Ordered By: Dr. Noble on 03-22-2023 Urea nitrogen [Mass/Vol] 25 mg/dL 7-18 [facility] Thin prep Papanicolaou smear with manual screeningOrdered By: Dr. Noble on 03-22-2023 Thin prep Papanicolaou smear with manual screening 24 U/L 15-37 [facility] Thin prep Papanicolaou smear with manual screening 1 5-15 [facility] IO UA (automated w/o microsc opy)on 02-17-2023 Protein (U) [Mass/Vol] Negative MP -Urology-[facility] Work Phone: IO UA (automated w/o microscopy) Negative PV-Rfetikn-Sbg land Work Phone: IO UA (automated w/o microscopy) Normal LK-Hbygqwq-Ehj land Work Phone: IO UA (automated w/o microscopy) 5.0 1 YH-Utpxmdj-Hqy land Work Phone: IO UA (automated w/o microscopy) 1.025 1 LB-Hkxpwny-Juj land Work Phone: IO UA (automated w/o microscopy) Clear NK-Osuxdzx-Vxw land Work Phone: IO UA (automated w/o microscopy) Colorless EH-Idxnbnx-Wpu land Work Phone: IO Ultrasound, measurement p ost-void resid urine and/or bl cap; no imagon 02-17-2023 IO Ultrasound, measurement post-void resid urine and/or bl cap; no imag 0 ml/min IC-Kqhvxyy-Nlb land Work Phone: Office Visit (Urology)on Follow-up visit Diagnoses/Problems Assessed Benign prostatic hyperplasia without urinary obstruction (600.00) (N40.0) Elevated PSA (790.93) (R97.20) Erectile dysfunction (607.84) (N52.9) Nocturia (788.43) (R35.1) Former smoker (V15.82) (Z87.891) Orders Elevated PSA Follow-up visit in 6 months Outpatient Follow-up PSA Status: Hold For - Scheduling,Retrospe ctive Authorization Requested for: 17Feb2023 Ordered Stat;For: Elevated [...] frequency ... Some urge incontinence. No dysuria..No hematuria...Nocturi a 1x. No medications for LUT's... ED is chronic. No medications for this. Review of Systems Constitutional: No fever, No chills. Eye: Negative. Ear/Nose/Mouth/Thro at: Negative. Respiratory: No shortness of breath, No cough. Cardiovascular: No chest pain, No peripheral edema. Gastrointestinal: No nausea, Genitourinary: Negative except as documented in history of present illness. Hematology/Lymphati cs: Patient denies being on blood thinners.. Endocrine: [...] Tablet Vitals Vital Signs Recorded: 17Feb2023 10:27AM Qgyupsvbgat09 Height5 ft 6 in Pupqik355 lb BMI Qfftzmpbuo45.25 kg/m2 BSA Calculated1.89 Tobacco Useb) No PHQ-2 Patient Declined/Screening not indicatedYes Falls Screening (Age 18+)a) No falls within the last year Physical Exam A/O x 3 in No apparent distress Constitutional: General appearance normal Respiratory: Respiratory effort is normal Gastrointestinal:Ab domen is not tender Genitourinary: Kidneys: Not palpable Bilaterally Bladder: Not palpable or tender Scrotum: No mass. No Hydrocele Epididymis: No spermatocele. Not tender Testicles: no mass Urethra: No Discharge Penis: WNL...No lesions Prostate: Symmetric. No Nodules Seminal Vesicles: No mass Sphincter Tone: normal Signatures Electronically signed by : Vincent Frazier II, MD; Feb 17 2023 10:37AM EST (Author) Normal [facility] Tobacco Screening.on 023 Fall risk assessment a) No falls within the last year VE-Tvandzy-Awn [facility] Work Phone: Tobacco use status CPHS b) No TK-Kwhjecq-Ukj land Work Phone: Tobacco Screening. Yes MP-Uro logy-[facility] Work Phone: PROSTATE SPECIFIC AGon 02-12 Prostate specific Ag [Mass/Vol] 15.66 ng/mL High 0.00 - 4.00 [facility] Comment on above: Result Comment: The FDA requires that the method used for PSA assay be reported to the physician. Values obtained with different assay methods must not be used interchangeably. This test was performed at [facility] using the [employer] PSA assay is a two-site immunoenzymatic sandwich assay. The assay is approved for measurement of prostate-specific antigen (PSA)in serum and may be used in conjunction with a digital rectal examination in men 50 years and older as an aid in detection of prostate cancer. 2-Birym-ireeuyaiy inhibitors (e.g. Proscar, Finasteride, Avodart, Dutasteride and Ashley) for the treatment of BPH have been shown to lower PSA levels by an average of 50% after 6 months of treatment. Performed By: #### P SA #### [id number] [place] [address] Prostate Specific Antigenon 02-12-2023 Prostate specific Ag [Mass/Vol] 15.66 ng/mL above high threshold See Below GI-Xaxvuxb-Iyp h[facility] 232 DO Work Phone: Comment on above: Reference Range: 0.0 0 - 4.00The FDA requires that the method used for PSA assay be reported to the physician. Values obtained with different assay methods must not be used interchangeably. This testwas performed at [facility] using the [employer] PSA assay is a two-site immunoenzymatic sandwich assay. The assay is approved for measurement of prostate-specific antigen (PSA)in serum and may be used in conjunction with a digital rectal examination in men 50 years and older as an aid in detection of prostate cancer.7-Wshyz-dytwwqsby inhibitors (e.g. Proscar, Finasteride, Avodart, Dutasteride and Ashley) for the treatment of BPH have been shown to lower PSA levels by an average of 50% after 6 months of treatment. Basophil percentageon 2021 Bilirubin [Mass/Vol] 0.90 mg/dL 0.20-1.00 [facility] Work Phone: Comment on above: For patients on eltr ombopag therapy, use of Dimension [place] TBIL is not recommended. Chloride [Moles/Vol] 107 mmol/L 98-107 [facility] Work Phone: Cholesterol [Mass/Vol] 148 mg/dL <200 [facility] Work Phone: Comment on above: <200 mg/dL Desirable 200-240 mg/dL Borderline >240 mg/dL High Risk Glucose [Mass/Vol] 107 mg/dL 74-106 [facility] Work Phone: Comment on above: Fasting Glucose resu lt from 100 to 125 mg/dL suggests IMPAIRED HOMEOSTASIS per A.D.A. criteria. Potassium [Moles/Vol] 3.6 mmol/L 3.5-5.1 [facility] Work Phone: Protein [Mass/Vol] 7.3 g/dL 6.4-8.2 [facility] Work Phone: Sodium [Moles/Vol] 140 mmol/L 136-145 [facility] Work Phone: Triglyceride [Mass/Vol] 255 mg/dL <199 [facility] Work Phone: Comment on above: The drugs N-Acetylcy steine and Metamizole may falsely depress this assay.Serum Triglycerides Reference Interval Normal <150 mg/dL Borderline high 150 - 199 mg/dL High 200 - 499 mg/dL Very High > or = 500 mg/dL Laboratory - Chemistry and C hemistry - challengeon 09-21-2022 ALP [Catalytic activity/Vol] 113 U/L 45-117 [facility] Work Phone: ALT [Catalytic activity/Vol] 27 U/L 16-61 [facility] Work Phone: CO2 [Moles/Vol] 27.0 mmol/L 21.0-32.0 [facility] Work Phone: Globulin (S) [Mass/Vol] 3.6 g/dL 2.2-4.2 [facility] Work Phone: Urea nitrogen/Creatinine [Mass ratio] 19.2 mg/mg 09-17 [facility] Work Phone: No Panel Informationon 09-21 Estimated GFR (MDRD) Amer 68 mL/min >60 [facility] Work Phone: Comment on above: GFR Calc Estimated GFR (MDRD) Non-Af Amer 56 mL/min >60 [facility] Work Phone: Comment on above: Non- GFR Calc Serum or plasma albumin yamileth urement (mass/volume)on 09-21-2022 Albumin [Mass/Vol] 3.7 g/dL 3.2-5.0 [facility] Work Phone: Serum or plasma albumin/glob ulin mass ratioon 09-21-2022 Albumin/Globulin [Mass ratio] 1.0 {ratio} 0.9-2.4 [facility] Work Phone: Serum or plasma calcium yamileth urement (mass/volume)on 09-21-2022 Calcium [Mass/Vol] 9.0 mg/dL 8.5-10.1 [facility] Work Phone: Serum or plasma cholesterol in HDL measurement (mass/volume)on 09-21-2022 Cholesterol in HDL [Mass/Vol] 32 mg/dL >40 [facility] Work Phone: Comment on above: The drugs N-Acetylcy steine and Metamizole may falsely depress this assay. Reference Range HDL <40 mg/dL Low HDL Cholesterol HDL >or= 60 mg/dL High HDL Cholesterol Serum or plasma cholesterol in VLDL measurement (mass/volume)on 09-21-2022 Cholesterol in VLDL [Mass/Vol] 51 mg/dL 5-40 [facility] Work Phone: Serum or plasma creatinine m easurement (mass/volume)on 09-21-2022 Creatinine [Mass/Vol] 1.30 mg/dL 0.70-1.30 [facility] Work Phone: Comment on above: The validity of the calculated GFR & GFRAA in patients over 70 years has not been determined. Clinical correlation is essential. Serum or plasma low density lipoprotein (LDL) cholesterol measurement (mass/volume)on 09-21-2022 Cholesterol in LDL [Mass/Vol] 65 mg/dL 0-130 [facility] Work Phone: Serum or plasma urea nitroge n measurement (mass/volume)on 09-21-2022 Urea nitrogen [Mass/Vol] 25 mg/dL 7-18 [facility] Work Phone: Thin prep Papanicolaou smear with manual screeningon 09-21-2022 Thin prep Papanicolaou smear with manual screening 21 U/L 15-37 [facility] Work Phone: Thin prep Papanicolaou smear with manual screening 6 5-15 [facility] Work Phone: Office Visit (Urology)on Follow-up visit Diagnoses/Problems Assessed Benign prostatic hyperplasia without urinary obstruction (600.00) (N40.0) Elevated PSA (790.93) (R97.20) Erectile dysfunction (607.84) (N52.9) Nocturia (788.43) (R35.1) Former smoker (V15.82) (Z87.891) Orders Elevated PSA, Nocturia Follow-up visit in 6 months Outpatient Follow-up PSA Status: Hold For - Scheduling,Retrospe ctive Authorization Requested for: [id number] Ordered Stat;For: Elevated PSA, Nocturia; Ordered By: Vincent Frazier II Performed: Due: [id number]; Last Updated By: Radha Martin; 08/21/2022 10:26:43 AM Prostate Specific Antigen; Status:Active - Retrospective Authorization; Requested for:[id number]; Perform:Lab Services - Lab To Draw (Blood Test); Due:[id number]; Last Updated By:Radha Martin; 08/21/2022 10:26:43 AM;Ordered; [...] frequency ... Some urge incontinence. No dysuria..No hematuria...Nocturi a 1x. No medications for LUT's... ED is chronic. No medications for this. Review of Systems Constitutional: No fever, No chills Eye: negative Respiratory: No shortness of breath, No cough. Cardiovascular: No chest pain Gastrointestinal: No nausea Genitourinary: Negative except as documented in history of present illness. Hematology/Lymphati cs: Patient denies being on blood thinners.. Endocrine: [...] Tablet Vitals Vital Signs Recorded: 21Aug2022 10:15AM Gypyfuqnnph48 Height5 ft 6 in Hnpxbi291 lb BMI Nhmzulyqjw07.41 kg/m2 BSA Calculated1.89 Tobacco Useb) No PHQ-2 Patient Declined/Screening not indicatedYes Falls Screening (Age 18+)a) No falls within the last year Physical Exam A/O x 3 in No apparent distress Constitutional: General appearance normal Respiratory: Respiratory effort is normal Gastrointestinal:Ab domen is not tender Genitourinary: Kidneys: Not palpable Bilaterally Bladder: Not palpable or tender Scrotum: No mass. No Hydrocele Epididymis: BILATERAL spermatocele. Not tender Testicles: no mass. WNL Urethra: No Discharge Penis: WNL...No lesions. uncircumcised Prostate: Symmetric. No Nodules. smooth Seminal Vesicles: No mass Sphincter Tone: normal Signatures Electronically signed by : Vincent Fraizer II, MD; Aug 21 2022 10:28AM EST (Author) Normal [employer] Tobacco Screening.on 022 Fall risk assessment a) No falls within the last year [facility]Ghqnkuu-[facility] Work Phone: Tobacco use status [facility] b) No FR-Ohfiknc-Apy land Work Phone: Tobacco Screening. Yes MP-Uro logy-Twicketer Work Phone: Prostate Specific Antigenon 08-14-2022 Prostate specific Ag [Mass/Vol] 12.47 ng/mL above high threshold See Below CA-Mgjqzro-[place]yn h[place] HC 232 DO Work Phone: Comment on above: Reference Range: 0.0 0 - 4.00The FDA requires that the method used for PSA assay be reported to the physician. Values obtained with different assay methods must not be used interchangeably. This testwas performed at [facility] using the [employer] PSA assay is a two-site immunoenzymatic sandwich assay. The assay is approved for measurement of prostate-specific antigen (PSA)in serum and may be used in conjunction with a digital rectal examination in men 50 years and older as an aid in detection of prostate cancer.2-Uqbsz-kgwfavwzb inhibitors (e.g. Proscar, Finasteride, Avodart, Dutasteride and Ashley) for the treatment of BPH have been shown to lower PSA levels by an average of 50% after 6 months of treatment. Basophil percentageon 2021 Chloride [Moles/Vol] 108 mmol/L 98-107 [facility] Work Phone: Cholesterol [Mass/Vol] 143 mg/dL <200 [facility] Work Phone: Comment on above: <200 mg/dL Desirable 200-240 mg/dL Borderline >240 mg/dL High Risk Glucose [Mass/Vol] 112 mg/dL 74-106 [facility] Work Phone: Comment on above: Fasting Glucose resu lt from 100 to 125 mg/dL suggests IMPAIRED HOMEOSTASIS per A.D.A. criteria. Potassium [Moles/Vol] 3.7 mmol/L 3.5-5.1 [facility] Work Phone: Sodium [Moles/Vol] 141 mmol/L 136-145 [facility] Work Phone: Triglyceride [Mass/Vol] 171 mg/dL [facility] Work Phone: Comment on above: The drugs N-Acetylcy steine and Metamizole may falsely depress this assay.Serum Triglycerides Reference Interval Normal <150 mg/dL Borderline high 150 - 199 mg/dL High 200 - 499 mg/dL Very High > or = 500 mg/dL Laboratory - Chemistry and C hemistry - challengeon 03-23-2022 CO2 [Moles/Vol] 26.0 mmol/L 21.0-32.0 [facility] Work Phone: Urea nitrogen/Creatinine [Mass ratio] 20.8 mg/mg 10-20 [facility] Work Phone: No Panel Informationon 03-23 Estimated GFR (MDRD) Amer 71 mL/min >60 [facility] Work Phone: Comment on above: GFR Calc Estimated GFR (MDRD) Non-Af Amer 59 mL/min >60 [facility] Work Phone: Comment on above: Non- GFR Calc Serum or plasma calcium yamileth urement (mass/volume)on 03-23-2022 Calcium [Mass/Vol] 8.5 mg/dL 8.5-10.1 [facility] Work Phone: Serum or plasma cholesterol in HDL measurement (mass/volume)on 03-23-2022 Cholesterol in HDL [Mass/Vol] 34 mg/dL [facility] Work Phone: Comment on above: The drugs N-Acetylcy steine and Metamizole may falsely depress this assay. Reference Range HDL <40 mg/dL Low HDL Cholesterol HDL >or= 60 mg/dL High HDL Cholesterol Serum or plasma cholesterol in VLDL measurement (mass/volume)on 03-23-2022 Cholesterol in VLDL [Mass/Vol] 34 mg/dL 5-40 [facility] Work Phone: Serum or plasma creatinine m easurement (mass/volume)on 03-23-2022 Creatinine [Mass/Vol] 1.25 mg/dL 0.70-1.30 [facility] Work Phone: Comment on above: The validity of the calculated GFR & GFRAA in patients over 70 years has not been determined. Clinical correlation is essential. Serum or plasma low density lipoprotein (LDL) cholesterol measurement (mass/volume)on 03-23-2022 Cholesterol in LDL [Mass/Vol] 75 mg/dL 0-130 [facility] Work Phone: Serum or plasma urea nitroge n measurement (mass/volume)on 03-23-2022 Urea nitrogen [Mass/Vol] 26 mg/dL 7-18 [facility] Work Phone: Thin prep Papanicolaou smear with manual screeningon 03-23-2022 Thin prep Papanicolaou smear with manual screening 7 5-15 [facility] Work Phone: Prostate Specific Antigenon 02-16-2022 Prostate specific Ag [Mass/Vol] 11.44 ng/mL above high threshold See Below [employer] Work Phone: Comment on above: Reference Range: 0.0 0 - 4.00The FDA requires that the method used for PSA assay be reported to the physician. Values obtained with different assay methods must not be used interchangeably. This testwas performed at [facility] using the [employer] PSA assay is a two-site immunoenzymatic sandwich assay. The assay is approved for measurement of prostate-specific antigen (PSA)in serum and may be used in conjunction with a digital rectal examination in men 50 years and older as an aid in detection of prostate cancer.9-Tcbqz-jhbqphwfy inhibitors (e.g. Proscar, Finasteride, Avodart, Dutasteride and Ashley) for the treatment of BPH have been shown to lower PSA levels by an average of 50% after 6 months of treatment. IO UA (automated w/o microsc opy)on 08-25-2021 Protein (U) [Mass/Vol] Negative [employer] Work Phone: IO UA (automated w/o microscopy) Negative [employer] Work Phone: IO UA (automated w/o microscopy) Normal (0.2-1.0 mg/dl) IH[facility]Qjwjpze-Euu land Work Phone: IO UA (automated w/o microscopy) 6.0 1 VW-Sqkrgds-Bwu land Work Phone: IO UA (automated w/o microscopy) 1.020 1 [employer] Work Phone: IO UA (automated w/o microscopy) Clear [employer]Nslapkl[facility] Work Phone: IO UA (automated w/o microscopy) Yellow [employer] Work Phone: Tobacco Screening.on 021 Fall risk assessment a) No falls within the last year [facility]-Mkxlrfh-MgjIn[facility] Work Phone: Tobacco use status [facility] b) No FF-Pllgpoy-RxiIn[facility] Work Phone: PROSTATE SPECIFIC AGon 08-20 Prostate specific Ag [Mass/Vol] 10.43 ng/mL High 0.00 - 4.00 [facility] Comment on above: Result Comment: The FDA requires that the method used for PSA assay be reported to the physician. Values obtained with different assay methods must not be used interchangeably. This test was performed at [facility] using the [employer] PSA assay is a two-site immunoenzymatic sandwich assay. The assay is approved for measurement of prostate-specific antigen (PSA)in serum and may be used in conjunction with a digital rectal examination in men 50 years and older as an aid in detection of prostate cancer. 8-Vvlzy-xvgicsbsd inhibitors (e.g. Proscar, Finasteride, Avodart, Dutasteride and Ashley) for the treatment of BPH have been shown to lower PSA levels by an average of 50% after 6 months of treatment. Performed By: #### P SA #### [place] [id number] Prostate Specific Antigenon 08-20-2021 Prostate specific Ag [Mass/Vol] 10.43 ng/mL above high threshold See Below [employer] Work Phone: Comment on above: Reference Range: 0.0 0 - 4.00The FDA requires that the method used for PSA assay be reported to the physician. Values obtained with different assay methods must not be used interchangeably. This testwas performed at [facility] using the [employer] PSA assay is a two-site immunoenzymatic sandwich assay. The assay is approved for measurement of prostate-specific antigen (PSA)in serum and may be used in conjunction with a digital rectal examination in men 50 years and older as an aid in detection of prostate cancer.5-Qqsim-jvbwiwvve inhibitors (e.g. Proscar, Finasteride, Avodart, Dutasteride and [...] June of 2018. COMPARISON: None. ACCESSION NUMBER(S): [id number] ORDERING CLINICIAN: VINCENT FRAZIER TECHNIQUE: Multiplanar MRI [...] x 4.5 cm x 5.5 cm in engmb-jc-nkio, anterior-posterior and craniocaudal dimension. Prostate weight is [...] as stated. This study was interpreted at [place], [place]. Electronically signed by: CARLOS HERNANDEZ MD [facility] PROSTATE SPECIFIC AGon 01-14 Prostate specific Ag [Mass/Vol] 12.52 ng/mL High 0.00 - 4.00 [facility] Comment on above: Result Comment: The FDA requires that the method used for PSA assay be reported to the physician. Values obtained with different assay methods must not be used interchangeably. This test was performed at [facility] using the [employer] PSA assay is a two-site immunoenzymatic sandwich assay. The assay is approved for measurement of prostate-specific antigen (PSA)in serum and may be used in conjunction with a digital rectal examination in men 50 years and older as an aid in detection of prostate cancer. 2-Xjwwd-npchpxtiy inhibitors (e.g. Proscar, Finasteride, Avodart, Dutasteride and Ashley) for the treatment of BPH have been shown to lower PSA levels by an average of 50% after 6 months of treatment. Performed By: #### P SA #### [address] [address] PSA Totalon 07-03-2019 PSA Total 9.70 ng/mL [facility] Comment on above: Result Comment: AGE- SPECIFIC REFERENCE RANGES FOR SERUM PSA REFERENCE RANGE NG/ML AGE ASIANS BLACKS WHITE 40-49 0-2 0-2 0-2.5 50-59 0-3 0-4 0-3.5 60-69 0-4 0-4.5 0-4.5 70-79 0-5 0-5.5 0-6.5 PSA INCREASES WITH AGE, RACE, AND EJACULATION WITHIN 48 HRS. [facility] VOL24,NO.2, , PG.339 Performed By: #### 1 [id number] #### CATHY [address] [address] PSA Totalon 01-10-2019 PSA Total 11.51 ng/mL [facility] Comment on above: Result Comment: AGE- SPECIFIC REFERENCE RANGES FOR SERUM PSA REFERENCE RANGE NG/ML AGE ASIANS BLACKS WHITE 40-49 0-2 0-2 0-2.5 50-59 0-3 0-4 0-3.5 60-69 0-4 0-4.5 0-4.5 70-79 0-5 0-5.5 0-6.5 PSA INCREASES WITH AGE, RACE, AND EJACULATION WITHIN 48 HRS. [facility] VOL24,NO.2, , PG.339 Performed By: #### 1 [id number] #### CATHY [employer] [address] [place], [place] [id number] Vital Signs Date Time Vital Sign Value Performing Clinician Facility 04-09-2025 11:23-0400 Body height 167.6 cm Sonia Albarado MD MPH Work Phone: [facility] 04-09-2025 11:23-0400 Body mass index (BMI) [Ratio] 27.92 kg/m2 Sonia Albarado MD MPH Work Phone: [facility] 04-09-2025 11:23-0400 Body weight 78.47 kg Sonia Albarado MD MPH Work Phone: [facility] 04-09-2025 11:23-0400 Diastolic blood pressure 76 mm[Hg] Sonia Albarado MD MPH Work Phone: [facility] 04-09-2025 11:23-0400 Heart rate 58 /min Sonia Albarado MD MPH Work Phone: [facility] 04-09-2025 11:23-0400 Systolic blood pressure 133 mm[Hg] Sonia Albarado MD MPH Work Phone: [facility] 09-06-2024 09:53-0400 Body mass index (BMI) [Ratio] 27.44 kg/m2 Vincent Frazier MD Work Phone: [facility] 09-06-2024 09:53-0400 Body weight 77.11 kg Vincent Frazier MD Work Phone: [facility] 09-06-2024 09:53-0400 Diastolic blood pressure 80 mm[Hg] Vincent Frazier MD Work Phone: [facility] 09-06-2024 09:53-0400 Respiratory rate 16 /min Vincent Frazier MD Work Phone: [facility] 09-06-2024 09:53-0400 Systolic blood pressure 142 mm[Hg] Vincent Frazier MD Work Phone: [facility] 08-16-2024 10:26-0400 Body mass index (BMI) [Ratio] 27.44 kg/m2 Vincent Frazier MD Work Phone: [facility] 08-16-2024 10:26-0400 Body weight 77.11 kg Vincent Frazier MD Work Phone: 4(681)485-142248 [place] [address] 08-16-2024 10:26-0400 Diastolic blood pressure 78 mm[Hg] Vincent Frazier MD Work Phone: 2(428)424-198348 [place] [address] 08-16-2024 10:26-0400 Respiratory rate 16 /min iVncent Frazier MD Work Phone: 7(499)661-660048 [place] [address] 08-16-2024 10:26-0400 Systolic blood pressure 136 mm[Hg] Vincent Frazier MD Work Phone: 6(622)120-379348 [place] [address] 02-16-2024 10:20-0400 Body height 167.6 cm Vincent Frazier MD Work Phone: 6(170)315-004448 [place] [address] 02-16-2024 10:20-0400 Body mass index (BMI) [Ratio] 27.21 kg/m2 Vincent Frazier MD Work Phone: 9(841)834-336848 [place] [address] 02-16-2024 10:20-0400 Body weight 76.48 kg Vincent Frazier MD Work Phone: 5(972)322-989648 [place] [address] 02-16-2024 10:20-0400 Diastolic blood pressure 76 mm[Hg] Vincent Frazier MD Work Phone: 5(330)705-923148 [place] [address] 02-16-2024 10:20-0400 Heart rate 73 /min Vincent Frazier MD Work Phone: 7(419)013-773948 [place] [address] 02-16-2024 10:20-0400 Systolic blood pressure 161 mm[Hg] Vincent Frazier MD Work Phone: [facility] 08-18-2023 10:59-0400 Body mass index (BMI) [Ratio] 27.52 kg/m2 Vincent Frazier II, MD Work Phone: SJ-Ipnrypj-Rpdrqxf Work Phone: 08-18-2023 10:59-0400 Body surface area Derived from formula 1.87 m2 Vincent Frazier II, MD Work Phone: YE-Mabelhr-Wdgpsnq Work Phone: 08-18-2023 10:59-0400 Body weight 77.34 kg Vincent Frazier II, MD Work Phone: JL-Pwdszwa-Owwgicq Work Phone: 08-18-2023 10:59-0400 Diastolic blood pressure 75 mm[Hg] Vincent Frazier II, MD Work Phone: LY-Gkfnqgl-Cbpwhup Work Phone: 08-18-2023 10:59-0400 Heart rate 65 /min Vincent Frazier II, MD Work Phone: CD-Jkdciwm-Mgazigx Work Phone: 08-18-2023 10:59-0400 Systolic blood pressure 147 mm[Hg] Vincent Frazier II, MD Work Phone: RD-Yggnvjk-Skbryrk Work Phone: 02-17-2023 10:27-0400 Body height 167.64 cm Vincent Frazier II, MD Work Phone: PQ-Pluvecd-Sxukjiz Work Phone: 02-17-2023 10:27-0400 Body mass index (BMI) [Ratio] 28.25 kg/m2 Vincent Frazier II, MD Work Phone: CU-Nqaepvj-Opupsxv Work Phone: 02-17-2023 10:27-0400 Body surface area Derived from formula 1.89 m2 Vincent Frazier II, MD Work Phone: YK-Fyysegd-Jtyhztx Work Phone: 02-17-2023 10:27-0400 Body weight 79.38 kg Vincent Frazier II, MD Work Phone: DS-Viwrjkm-Sdbvzxx Work Phone: 02-17-2023 10:27-0400 Respiratory rate 16 /min Vincent Frazier II, MD Work Phone: IN-Ayegjjq-Dportlb Work Phone: 08-21-2022 10:15-0400 Body height 167.64 cm Vincent Frazier II, MD Work Phone: XX-Wyldctj-Kivjhhm Work Phone: 08-21-2022 10:15-0400 Body mass index (BMI) [Ratio] 28.41 kg/m2 Vincent Frazier II, MD Work Phone: XQ-Lbjgqly-Iwvmyns Work Phone: 08-21-2022 10:15-0400 Body surface area Derived from formula 1.89 m2 Vincent Frazier II, MD Work Phone: VN-Bqtxboa-Iyvgqby Work Phone: 08-21-2022 10:15-0400 Body weight 79.83 kg Vincent Frazier II, MD Work Phone: RE-Bdsksqn-Byxyofr Work Phone: 08-21-2022 10:15-0400 Respiratory rate 16 /min Vincent Frazier II, MD Work Phone: OV-Sqhzguk-Ohjmnwd Work Phone: 08-25-2021 10:19-0400 Body height 167.64 cm Vincent Frazier II, MD Work Phone: AV-Eaoszko-Nmlgoue Work Phone: 08-25-2021 10:19-0400 Body mass index (BMI) [Ratio] 28.57 kg/m2 Vincent Frazier II, MD Work Phone: CZ-Tgoplmr-Sqyuirw Work Phone: 08-25-2021 10:19-0400 Body surface area Derived from formula 1.9 m2 Vincent Frazier II, MD Work Phone: PE-Cxtlpii-Vyomhmg Work Phone: 08-25-2021 10:19-0400 Body weight 80.29 kg Vincent Frazier II, MD Work Phone: SA-Qrwpwbm-Clirwpr Work Phone: 08-25-2021 10:19-0400 Diastolic blood pressure 75 mm[Hg] Vincent Frazier II, MD Work Phone: TG-Kgesoxc-Csxmqib Work Phone: 08-25-2021 10:19-0400 Heart rate 77 /min Vincent Frazier II, MD Work Phone: GG-Jwyechd-Jmchvej Work Phone: 08-25-2021 10:19-0400 Systolic blood pressure 128 mm[Hg] Vincent Frazier II, MD Work Phone: RQ-Wrpnxqh-Whwqpea Work Phone: Encounters Encounter Date Encounter Type Care Provider Facility Start: 04-09-2025 End: 04-09-2025 Office outpatient visit 25 minutes Sonia Albarado MD MPH Work Phone: [facility] Comment on above: Elevated PSA Start: 04-09-2025 End: 04-09-2025 ambulatory [facility] Start: 03-26-2025 End: 03-26-2025 ambulatory Bo Noble Facility:[facility] Start: 02-07-2025 End: 02-07-2025 ambulatory SELF Facility:[facility] Start: 02-07-2025 End: 02-07-2025 Patient encounter procedure Bhavna Kern OD Work Phone: Optometry Comment on above: 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); Glaucoma suspect of both eyes; Hyperopia of both eyes; Regular astigmatism of both eyes; Presbyopia Start: 09-27-2024 End: 09-27-2024 ambulatory Bo Noble Facility:[facility] Start: 09-06-2024 End: 09-06-2024 Office outpatient visit 25 minutes Vincent Frazier MD Work Phone: [facility] Comment on above: Elevated PSA; Erectile dysfunction, unspecified erectile dysfunction type; Nocturia; Benign prostatic hyperplasia without urinary obstruction Start: 09-06-2024 End: 09-06-2024 ambulatory [facility] Start: 08-24-2024 End: 08-24-2024 Subsequent hospital visit by physician [facility] Comment on above: Elevated PSA Start: 08-24-2024 End: 08-24-2024 ambulatory [facility] Start: 08-16-2024 End: 08-16-2024 Office outpatient visit 25 minutes Vincent Frazier MD Work Phone: [facility] Comment on above: Nocturia; Erectile dysfunction, unspecified erectile dysfunction type; Elevated PSA; Benign prostatic hyperplasia without urinary obstruction Start: 08-16-2024 End: 08-16-2024 ambulatory [facility] Start: 08-07-2024 End: 08-07-2024 ambulatory [facility] Start: 03-23-2024 End: 03-23-2024 ambulatory [facility] Work Phone: Start: 03-23-2024 End: 03-23-2024 Patient encounter procedure [facility] Start: 02-16-2024 End: 02-16-2024 Office outpatient visit 25 minutes Vincent Frazier MD Work Phone: [facility] Comment on above: Benign prostatic hyp erplasia without urinary obstruction; Elevated PSA; Erectile dysfunction, unspecified erectile dysfunction type; Nocturia Start: 02-04-2024 End: 02-04-2024 [facility] Start: 09-20-2023 End: 09-20-2023 [facility] Work Phone: Start: 09-20-2023 End: 09-20-2023 Patient encounter procedure [facility] Start: 08-18-2023 Office outpatient vi sit 25 minutes Vincent Frazier II, MD Work Phone: ZE-Qywfvtp-Wmqadtt Work Phone: Start: 08-18-2023 ambulatory MD VINCENT Butts cility:[id number] Start: 08-09-2023 Chart Update Vincent Barraza Work Phone: RE-Nszdhly-Anxabgfj HC 232 DO Work Phone: Start: 03-22-2023 End: 03-22-2023 ambulatory [facility] Work Phone: Start: 03-22-2023 End: 03-22-2023 Patient encounter procedure [facility] Start: 02-17-2023 FUV, Provider: Vincent Frazier II, Status: Pen, Time: 10:00 AM Vincent Frazier II, MD Work Phone: HZ-Esyaepa-Fasgymvl HC 232 DO Work Phone: Start: 02-17-2023 Office outpatient vi sit 25 minutes Vincent Frazier II, MD Work Phone: EP-Prqlddu-Gqcvuvx Work Phone: Start: 02-17-2023 ambulatory MD VINCENT Butts cility:[id number] Start: 02-15-2023 Chart Update Vincent Barraza Work Phone: WS-Uthncab-Vhkymesf HC 232 DO Work Phone: Start: 02-10-2023 AUDIT Vincent Barraza Work Phone: FB-Njvmjvg-Xbcoljw Work Phone: Start: 09-21-2022 End: 09-21-2022 ambulatory [facility] Work Phone: Start: 09-21-2022 End: 09-21-2022 Patient encounter procedure [facility] Start: 08-21-2022 Office outpatient vi sit 25 minutes Vincent Frazier II, MD Work Phone: UT-Pgxhdxm-Jprkzpu Work Phone: Start: 08-21-2022 ambulatory MD VINCENT Butts cility:[id number] Start: 08-17-2022 Chart Update Vincent Barraza Work Phone: EZ-Gnlvmqu-Llaoujlc HC 232 DO Work Phone: Start: 08-13-2022 AUDIT Vincent Frazier II M D Work Phone: UT-Upqmdoi-Kzqhdfr Work Phone: Start: 03-23-2022 End: 03-23-2022 Patient encounter procedure [facility] Start: 02-23-2022 AUDIT Vincent Frazier II M D Work Phone: MX-Antfhtz-Jbhmfyw Work Phone: Start: 02-17-2022 Chart Update Vincent Estrada D Work Phone: ZF-Bfsnhyu-Anvyvbt Work Phone: Start: 08-25-2021 Office outpatient vi sit 25 minutes Vincent Frazier II, MD Work Phone: ZA-Xnfcqyf-Sziiwrl Work Phone: Start: 08-20-2021 Chart Update Vincent Barraza Work Phone: UT-Euxnivv-Eapiytl Work Phone: Start: 01-20-2021 Office outpatient vi sit 25 minutes Vincent Frazier II, MD Work Phone: YT-Pzzymal-Uotoaer Work Phone: Procedures Date Procedure Procedure Detail Performing Clinician Start: 08-24-2024 Mri pelvis w/o & w/c ontrast material Vincent Frazier MD Work Phone: Start: 02-04-2024 PROSTATE SPECIFIC ANTIGEN Cholecystectomy Vincent Frazier II, MD Work Phone: Plan of Treatment Date Care Activity Detail Author Start: 10-16-2034 DTaP/Tdap/Td Vaccine s (2 - Td or Tdap) DTaP/Tdap/Td Vaccines (2 - Td or Tdap) [facility] Start: 10-16-2034 Urine microalbumin profile DTaP,Tdap,Td Vaccine (2 - Td or Tdap) [facility] Start: 01-28-2027 OCT OPTIC NERVE CIRR US OU (BOTH EYES) OCT OPTIC NERVE CIRRUS OU (BOTH EYES) [facility] Imaging Routine Glaucoma suspect of both eyes Expected: 01/28/2027 [facility] Comment on above: Expected: 01/28/2027 Start: 01-28-2027 VISUAL FIELD 24-2 OU (BOTH EYES) VISUAL FIELD 24-2 OU (BOTH EYES) [facility] Imaging Routine Glaucoma suspect of both eyes Expected: 01/28/2027 [facility] Work Phone: Comment on above: Expected: 01/28/2027 Start: 02-13-2026 End: 02-13-2026 Patient encounter procedure 02/13/2026 2:30 PM EDT Office Visit [facility] [address] [place] [address] Bhavna Kern II, OD [address] [place] [address] Eye exam Medicare/[employer] [facility] Comment on above: Eye exam Medicare/A[employer] tna Start: 04-09-2025 End: 04-09-2026 MR Prostate MR prostate with [place] boundaries if pirads 3 or above Imaging Routine Elevated PSA Expected: 04/09/2025 (Approximate), Expires: 04/09/2026 [facility] Work Phone: Comment on above: Expected: 04/09/2025 (Approximate), Expires: 04/09/2026 Start: 04-09-2025 End: 04-09-2026 Prostate specific Ag [Mass/volume] in Serum or Plasma PSA Lab Routine Elevated PSA Expected: 04/09/2025 (Approximate), Expires: 04/09/2026 [facility] Work Phone: Comment on above: Expected: 04/09/2025 (Approximate), Expires: 04/09/2026 Start: 11-29-2024 Advance Directive Discussion Advance Directive Discussion [facility] Start: 11-15-2024 End: 08-16-2025 Prostate specific Ag [Mass/volume] in Serum or Plasma Prostate Specific Antigen Lab Routine Nocturia Elevated PSA Expected: 11/15/2024 (Approximate), Expires: 08/16/2025 [facility] Service Area Work Phone: Comment on above: Expected: 11/15/2024 (Approximate), Expires: 08/16/2025 Start: 09-06-2024 End: 09-06-2024 Patient encounter procedure 09/06/2024 10:00 AM EDT Office Visit [address] [phone] Vincent Frazier MD [address] [place] [address] [phone] [facility] Start: 08-16-2024 End: 08-16-2024 Patient encounter procedure 08/16/2024 10:30 AM EDT Office Visit [address] [phone] Vincent Frazier MD [address] [place] [id number] [facility] Start: 07-30-2024 COVID-19 Vaccine ( season) COVID-19 Vaccine ( season) [facility] Start: 07-30-2024 COVID-19 Vaccine ( season) COVID-19 Vaccine ( season) [facility] Start: 07-30-2024 Covid-19 Vaccine ( season) Covid-19 Vaccine ( season) [facility] Start: 07-30-2024 Influenza vaccination Influenza Vacc ine (#1) [facility] Start: 07-30-2024 End: 02-15-2025 Prostate specific Ag [Mass/volume] in Serum or Plasma Prostate Specific Antigen Lab Routine Elevated PSA Expected: 07/30/2024 (Approximate), Expires: 02/15/2025 [facility] Service Area Work Phone: Comment on above: Expected: 07/30/2024 (Approximate), Expires: 02/15/2025 Start: 08-18-2023 FUV, Provider: Vincent Frazier II, Status: Pen, Time: 10:45 AM FUV, Provider: Vincent Frazier II, Status: Pen, Time: 10:45 AM [facility] Work Phone: Start: 07-30-2023 COVID-19 Vaccine ( season) COVID-19 Vaccine ( season) [facility] Start: 05-27-2023 Zoster Vaccines (3 of 3) Zoste r Vaccines (3 of 3) [facility] Start: 02-17-2023 FUV, Provider: Vincent Frazier II, Status: Pen, Time: 10:00 AM FUV, Provider: Vincent Frazier II, Status: Pen, Time: 10:00 AM [facility] Work Phone: Start: 08-21-2022 FUV, Provider: Vincent Frazier II, Status: Pen, Time: 10:00 AM FUV, Provider: Vincent Frazier II, Status: Pen, Time: 10:00 AM [facility] Work Phone: Start: 02-23-2022 FUV, Provider: Vincent Frazier II, Status: Pen, Time: 10:00 AM FUV, Provider: Vincent Frazier II, Status: Pen, Time: 10:00 AM [facility] Work Phone: Start: 08-25-2021 FUV, Provider: Vincent Frazier II, Status: Pen, Time: 10:15 AM FUV, Provider: Vincent Frazier II, Status: Pen, Time: 10:15 AM [facility] Work Phone: Start: 2014 RSV High Risk: (Elde rly (60+) or Population) (1 - 1-dose 75+ series) RSV High Risk: (Elderly (60+) or Population) (1 - 1-dose 75+ series) [facility] Start: 2014 RSV Vaccine (1 - 1-d ose 75+ series) RSV Vaccine (1 - 1-dose 75+ series) [facility] Start: 1999 RSV patient s and/or patients aged 60+ years (1 - 1-dose 60+ series) RSV patients and/or patients aged 60+ years (1 - 1-dose 60+ series) [facility] Start: 1984 Diabetes Screening Diabetes Screenin g [facility] Start: 1961 DTaP/Tdap/Td Vaccine s (1 - Tdap) DTaP/Tdap/Td Vaccines (1 - Tdap) [facility] Start: 1957 Anxiety Screening Anxiety Screening [facility] Start: 1957 Depression Screening Depression Scre ening [facility] Start: 1939 Lipid panel Lipid Panel [facility] Start: 1939 Medicare Annual Well ness Visit Medicare Annual Wellness Visit (AWV) [facility] Start: 1939 Yearly Adult Physical Yearly Adult P [facility] MR Prostate MR prostate with [place] boundaries if pirads 3 or above Imaging Routine Elevated PSA 08/24/2024 12:44 PM EDT [facility] Service Area Work Phone: Immunizations Immunization Date Immunization Notes Care Provider [facility] 09-30-2023 influenza virus vaccine, unspecified formulation Vincent Frazier MD Work Phone: [facility] Work Phone: Payers Date Payer Category Payer Self-pay [id number] 2023 Unknown 2018 Medicare supplementa l policy (as second payer) [employer] S[employer] [id number] 2018 Private Health Insurance GILBERT DELUNA 2018 Private Health Insurance [id number] 2018 Private Health Insurance [facility] [id number] 2012 Unknown [id number] 2005 Medicare [id number] 2004 Medicare [id number] 1939 Unknown [id number] [id number] 1939 Unknown [id number] [id number] 1939 Unknown [id number] [id number] 1939 Unknown [id number] [id number] 1939 Unknown [id number] [id number] 1939 Unknown [id number] [id number] 1939 Unknown [id number] [id number] 1939 Unknown [id number] [id number] 1939 Unknown [id number] [id number] Unknown [id number] Unknown [id number] [id number] Social History Date Type Detail Facility Start: 02-16-2024 End: 04-09-2025 Former smoker Former smoker [facility] Work Phone: Start: 02-19-2014 Tobacco smoking stat us NHIS Unknown if ever smoked [facility] Start: 1940 Sex Assigned At Male W [facility] Start: 05-29-2015 End: 02-16-2024 Tobacco smoking status NHIS Never smoked tobacco [facility] Start: 05-29-2015 End: 02-16-2024 Tobacco use and exposure Smokeless tobacco non-user [facility] Work Phone: Start: 02-16-2024 End: 09-06-2024 Alcohol intake Ex-drinker (finding) [facility] Work Phone: Start: 02-16-2024 End: 04-09-2025 Tobacco use panel [facility] Work Phone: Start: 1940 Sex Assigned At Not on file U [facility] Work Phone: Start: 02-06-2024 End: 04-09-2025 Exposure to SARS-CoV-2 (event) Not sure [facility] Start: 02-07-2025 Alcoholic beverage intake Current non-drinker of alcohol (finding) [facility] National Score (1-100), lower number is lower risk 79 [facility] Functional Status Date Assessment Result Facility 04-09-2025 Patient Health [facility] ionnaire 2 item (PHQ-2) [Reported] [facility] Work Phone: 03-01-2014 Are you deaf, or do you have serious difficulty hearing No 03/01/2014 9:57 AM Dorcas Ayon LPN No [facility] 03-01-2014 Are you blind, or do you have serious difficulty seeing, even when wearing glasses No 03/01/2014 9:57 AM Dorcas Ayon LPN No [facility] 03-01-2014 Do you have serious difficulty walking or climbing stairs No 03/01/2014 9:57 AM EDT Dorcas Solomon LPN No [facility] 03-01-2014 Do you have difficul ty dressing or bathing No 03/01/2014 9:57 AM EDT Dorcas Solomon LPN No [facility] 03-01-2014 Because of a physica l, mental, or emotional condition, do you have difficulty doing errands alone such as visiting a physician's office or shopping No 03/01/2014 9:57 AM EDT Dorcas Solomon LPN No [facility] Mental Status Date Assessment Result Facility 03-01-2014 Because of a physica l, mental, or emotional condition, do you have serious difficulty concentrating, remembering, or making decisions No 03/01/2014 9:57 AM EDT Dorcas Solomon LPN No [facility] Clinical Notes 12-30-2020 to 04-09-2025 Sonia Albarado MD MPH - 04/09/2025 11:00 AM EDTPatient Bhavna Seals II, OD - 02/07/2025 3:01 PM EDTVincent Frazier MD - 09/06/2024 10:00 AM EDT Note Date & Type Note Facility 04-09-2025 History of Presen t illness Narrative Subjective Patient ID: Manju Omalley is a 84 y.o. male HPI 84 y.o. male who presents for a 6 months follow-up visit with elevated PSA. Last seen by Dr. Frazier on 08/2024 whom noted the patient's MRI (07/2024) showed no evidence of clinically significant prostate cancer. . chronic hx of Elevated PSA. Most recent PSA is 18.19 on 03/2025. Prior was 21.07 on 08/22. Prior PSA was [...] ED is chronic. No medications for this. Today, he notes he does not wish to have another biopsy completed. The most recent PSA, conducted on 04/02/2025, revealed: 18.19 ng/mL Review of Systems All systems were reviewed. Anything negative was noted in the HPI. Objective Physical Exam General: Well developed, well nourished, alert and cooperative, appears in no acute distress Eyes: Non-injected conjunctiva, sclera clear, no proptosis Cardiac: Extremities are warm and well perfused. No edema, cyanosis or pallor Lungs: Breathing is easy, non-labored. Speaking in clear and complete sentences. Normal diaphragmatic movement MSK: Ambulatory with steady gait, unassisted Neuro: Alert and oriented to person, place, and time Psych: Demonstrates good judgment and reason, without hallucinations, abnormal affect or abnormal behaviors Skin: No obvious lesions, no rashes No CVA tenderness bilaterally No suprapubic pain or discomfort Medical History[1] Surgical History[2] Assessment/Plan Elevated PSA, 2 negative bx 84 y.o. male who presents for the above condition, We had a very long and extensive discussion with the patient regarding elevated PSA. I explained to him the pathophysiology, differential diagnosis, risk factor, associated conditions, and management. I explained to him that elevated PSA could be either due to BPH, prostate infection or inflammation or prostate adenocarcinoma. We discussed the need to do a work-up to rule out any underlying prostate adenocarcinoma in the form of MR fusion biopsy if his MRI is positive or regular TRUS biopsy of the MRI is negative or we cannot do an MRI of the prostate. We discussed at length the risk, benefit, potential complication, adverse events of prostate biopsy including pain, discomfort, urinary retention, hematuria, pneumaturia, hematospermia. Explained to him that there is a 2% to 5% risk of complicated urinary infection and urosepsis. Explained to him indicates it happens, he will need to be admitted for IV antibiotic for 2 to 3 days at the hospital. - Provided pt with surgical biopsy intervention and observation options. - Pt elected to move forward with observation at this time. Plan: - Follow-up in 6 months with: - PSA - MRI Prostate E&M visit today is associated with current or anticipated ongoing medical care services related to a patient's single, serious condition or a complex condition. 04/09/2025 Scribe Attestation By signing my name below, I, Cely Johnerson, Tiffany attest that this documentation has been prepared under the direction and in the presence of Dr. Sonia Albarado. [1] No past medical history on file. 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 Well tolerated at this time. Discussed possible future affect on daily activities to watch for. Monitor as instructed. 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 Stable Intraocular pressure and nerve appearance today. Recommend repeat OCT NFA and Visual field in one year. No treatment indicated at this time. Discussed need for continued close observation to minimize chance of future vision loss. H52.03 Hyperopia of both eyes H52.223 Regular astigmatism of both eyes H52.4 Presbyopia Comment: Stable glasses power. I have confirmed and edited as necessary the relevant HPI, ophthalmic history, ROS, and the neuro exam findings as obtained by others. I have seen and examined Manju Dash Shahram. I have discussed the case and the management of this patient's care with the Resident/Fellow, if applicable. I also have reviewed and agree with the assessment and plan as stated above and agree with all of its relevant components. documented in this encounter [facility] 02-07-2025 Note HNO ID: [id number] Author: BHAVNA KERN II, OD Service: ? Author Type: SANIPRACTIC PHYSICIAN Type: Progress Notes Filed: 02/07/2025 15:03 Note Text: Assessment and Plan H25.813 Combined form of senile cataract of both eyes (primary encounter diagnosis) Comment: Mild cataract in both eyes. Well tolerated at this time. Discussed possible future affect on daily activities to watch for. Monitor as instructed. 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 Stable Intraocular pressure and nerve appearance today. Recommend repeat OCT NFA and Visual field in one year. No treatment indicated at this time. Discussed need for continued close observation to minimize chance of future vision loss. H52.03 Hyperopia of both eyes H52.223 Regular astigmatism of both eyes H52.4 Presbyopia Comment: Stable glasses power. I have confirmed and edited as necessary the relevant HPI, ophthalmic history, ROS, and the neuro exam findings as obtained by others. I have seen and examined Manju Omalley. I have discussed the case and the management of this patient's care with the Resident/Fellow, if applicable. I also have reviewed and agree with the assessment and plan as stated above and agree with all of its relevant components. [facility] 02-07-2025 History of Presen t illness Narrative Assessment and Plan H25.813 Combined form of senile cataract of both eyes (primary encounter diagnosis) Comment: Mild cataract in both eyes. Well tolerated at this time. Discussed possible future affect on daily activities to watch for. Monitor as instructed. 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 Stable Intraocular pressure and nerve appearance today. Recommend repeat OCT NFA and Visual field in one year. No treatment indicated at this time. Discussed need for continued close observation to minimize chance of future vision loss. H52.03 Hyperopia of both eyes H52.223 Regular astigmatism of both eyes H52.4 Presbyopia Comment: Stable glasses power. I have confirmed and edited as necessary the relevant HPI, ophthalmic history, ROS, and the neuro exam findings as obtained by others. I have seen and examined Manju Omalley. I have discussed the case and the management of this patient's care with the Resident/Fellow, if applicable. I also have reviewed and agree with the assessment and plan as stated above and agree with all of its relevant components. documented in this encounter [facility] 09-06-2024 History of Presen t illness Narrative Subjective Patient ID: Manju Omalley [...] months with PSA documented in this encounter [facility] Work Phone: 08-16-2024 History of Presen t illness Narrative Subjective Patient ID: Manju Omalley [...] tender Scrotum no mass, No hydrocele Epididymis- Left spermatocele. Non Tender. Testicles: No mass Urethra: No discharge Penis within normal limits... No lesions Prostate - symmetric, no nodules.BENIGN Seminal Vesicals: No mass. Sphincter tone: normal Neurological: Mental Status: He is alert. Assessment/Plan Diagnoses and all orders for this visit: Nocturia - Prostate Specific Antigen; Future Erectile dysfunction, unspecified erectile dysfunction type Elevated PSA - Prostate Specific Antigen; Future Benign prostatic hyperplasia without urinary obstruction All available PSA values reviewed, Options discussed. Questions answered. Past MRI reviewed-New MRI ordered Pros and cons of prostate biopsy reviewed. Other options discussed. Questions answered Diet changes for prostate health discussed and educational information given. Pros/Cons of prostate health supplements discussed. Treatment options for LUTS reviewed Discussed timed voiding. Discussed fluid and caffeine intake Treatment options for ED reviewed-Observe Lifestyle change to help prevent UTIs discussed. Encouraged fluid intake. Observe spermatocele F/U after Prostate MRI documented in this encounter [facility] Work Phone: 02-16-2024 History of Presen t illness Narrative Subjective Patient ID: Manju Omalley [...] months with PSA documented in this encounter [facility] Work Phone: 02-18-2023 History of Presen t illness Narrative Patient has chronic hx of [...] ED is chronic. No medications for this. [facility] Work Phone: 08-20-2022 History of Presen t illness Narrative Patient has chronic hx of [...] ED is chronic. No medications for this. [facility] Work Phone: 08-20-2022 History of Presen t illness Narrative Patient has chronic hx of [...] ED is chronic. No medications for this. [facility] Work Phone: 07-30-2021 History of Presen t illness Narrative Patient has chronic hx of [...] ED is chronic. No medications for this. [facility] Work Phone: 12-30-2020 History of Presen t illness Narrative hx of elevated PSA. Most [...] ED is chronic. No medications for this. [facility] Work Phone: Evaluation note No assessment inform ation available [facility] Work Phone: Evaluation note Diagnosis Benign prostatic hyperplasia without urinary obstruction Elevated PSA Elevated prostate specific antigen (PSA) Erectile dysfunction, unspecified erectile dysfunction type Nocturia documented in this encounter [facility] Work Phone: Evaluation note* Diagnosis Elevated PSA Elevated prostate specific antigen (PSA) Erectile dysfunction, unspecified erectile dysfunction type Nocturia Benign prostatic hyperplasia without urinary obstruction documented in this encounter [facility] Work Phone: Evaluation note* Diagnosis Nocturia Erectile dysfunction, unspecified erectile dysfunction type Elevated PSA Elevated prostate specific antigen (PSA) Benign prostatic hyperplasia without urinary obstruction documented in this encounter [facility] Work Phone: Evaluation note* Diagnosis Elevated PSA Elevated prostate specific antigen (PSA) documented in this encounter [facility] Work Phone: Evaluation note* Diagnosis Combined form of senile cataract of both eyes- Primary 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, unspecified Hyperopia of both eyes Regular astigmatism of both eyes Regular astigmatism Presbyopia [facility] Elevated PSA Elevated prostate specific antigen (PSA) documented in this encounter [facility] Work Phone: Summary Purpose Family History No Family History Records FoundUnknown Family Member Name Dates Details Family history [...] Status:Active Advance Directives No Advanced Directives Records Found Advance Directive Response Recorded Date/ Time Advance Directives Yes February 19 014 2:04pm Living Will Yes February 19, 2014 2:04pm Power of Customer Sales Advisor Yes February 19 14 2:04pm Chief Complaint 6 MO W/ PSA6 month f/u w/ PSA6 mo w/ PSA6 mo w/ PSA6 mo w/ PSA Reason for Referral Specialty Diagnoses / Procedures Referred By Wayne diaz Referred To Contact Radiology Diagnoses Elevated PSA Procedures MR prostate with [place] boundaries if pirads 3 or above Vincent Frazier MD [address] [place] [address] Referral ID Status Reason Start Date Expiration Date Visits Requested Visits Authorized [id number] Authorized Perform Procedure 08/17/2024 08/17/2025 1 1 Additional Source Comments (unrecognized sect ion and content) No Status Records FoundNo Status Records FoundNo Status Records FoundNo Status Records FoundNo Status Records FoundNo Status Records FoundNo Status Records FoundNo Status Records FoundNo Status Records FoundNo Status Records Found INFORMATION SOURCE (unrecogn ized section and content) DATE CREATED AUTHOR 07/11/2019 [facility] DATE CREATED AUTHOR AUTHOR'S ORGANIZ ATION 08/24/2021 [facility] DATE CREATED AUTHOR AUTHOR'S ORGANIZ ATION 08/20/2023 [facility] DATE CREATED AUTHOR AUTHOR'S ORGANIZ ATION 08/20/2023 [facility] DATE CREATED AUTHOR AUTHOR'S ORGANIZ ATION 08/13/2024 [facility] DATE CREATED AUTHOR AUTHOR'S ORGANIZ ATION 08/28/2024 [facility] DATE CREATED AUTHOR AUTHOR'S ORGANIZ ATION 02/10/2025 [facility] DATE CREATED AUTHOR AUTHOR'S ORGANIZ ATION 04/03/2025 [facility] DATE CREATED AUTHOR AUTHOR'S ORGANIZ ATION 04/06/2025 [facility] DATE CREATED AUTHOR AUTHOR'S ORGANIZ ATION 04/10/2025 [facility] Ambulatory Goals (unrecognized section and content) Goals may be documented in a n alternate sectionGoals may be documented in an alternate sectionGoals may be documented in an alternate sectionGoals may be documented in an alternate sectionGoals may be documented in an alternate section Care Teams (unrecognized sec tion and content) Team Status: Active Member Role Status Dates Dr. Bo Noble MD Family Provider Active Dr. Bo Noble MD Primary Care Provider Active Team Status: Inactive Member Role Status Dates Dr. Bo Noble MD Primary Care Provider, Attending Provider Active Extractions Technician Relationship Specialty Start Date End Date Bo Noble MD [address] [place], [place] [address] PCP - General Family Medicine 08/24/24 Extractions Technician Relationship Specialty Start Date End Date Bo Noble MD [address] [place], [place] [phone] PCP - General Family Medicine 08/24/24 Extractions Technician Relationship Specialty Start Date End Date Bo Noble MD PCP - General Family Medicine 02/14/14 Extractions Technician Relationship Specialty Start Date End Date Bo Noble MD [address] [place], [place] [phone] PCP - General Family Medicine 08/24/24 Reason for Visit (unrecogniz ed section and content) Reason Comments 6 MONTH WITH PSA Reason Comments Elevated PSA Specialty Diagnoses / Procedures Referred By Contmaxi t Referred To Contact Radiology Diagnoses Elevated PSA Procedures MR prostate with [place] boundaries if pirads 3 or above Vincent Frazier MD [address] [place] [address] Referral ID Status Reason Start Date Expiration Date Visits Requested Visits Authorized [id number] Authorized Perform Procedure 08/17/2024 08/17/2025 1 1 Reason Comments Glaucoma Suspect Evaluation Cataract Evaluation Source Comments (unrecognize d section and content) In the event this informatio n is protected by the Federal Confidentiality of Alcohol and Drug Abuse Patient Records regulations: The Federal rules restrict any use of the information to criminally investigate or prosecute any alcohol or drug abuse patient.[facility] FOR RECORDS PERTAINING TO PATIENTS WHO ARE [...] BE BASED ON THE PRIMARY CLINICAL RECORDS. [employer] [facility]. provides no warranty or guarantee of the accuracy or completeness of information in this document.
--- NOTE | 2025-06-09 12:13 | CT_ITS ---
PROCEDURE: CHEST WITHOUT CONTRAST 06/09/2025 REASON FOR EXAM: ABNORMAL CXR, COUGH TECHNIQUE: Chest CT without contrast. Coronal and Sagittal reconstruction series were provided. One or more dose reduction techniques were used (e.g., Automated exposure control, adjustment of the mA and/or kV according to patient size, use of iterative reconstruction technique. RADIATION DOSE SUMMARY: DLP: 500 mGycm COMPARISON: Same day chest radiograph. FINDINGS: Hardware: None. Lymph nodes: Visualization is limited without the use of IV contrast. No large thoracic lymphadenopathy. Heart and Vasculature: Mild cardiomegaly without pericardial effusion. Severe coronary artery and moderate thoracic aortic calcifications. The great vessels are normal in caliber. Lungs and Airways: Central airways are grossly patent. Findings of mild emphysema with scattered areas of scarring. Small scattered bilateral pulmonary nodules (for example within the left lower lobe measuring 0.4 cm series 4, image 70). Bilateral partially calcified pleural plaques, including a large left anterior pleural plaque, which correlates with the ill-defined opacity seen on same day chest radiograph. No pleural effusion or pneumothorax. Upper Abdomen: Abdominal aortic calcifications. Bones: Cervical and thoracic spondylosis. CT/Chest without Contrast IMPRESSION: 1. No acute thoracic finding. 2. Findings of mild emphysema with small bilateral pulmonary nodules. Optional follow-up CT chest in 12 months to evaluate for stability if patient is high risk per Fleischner guidelines. Reading Location: [id number]
--- NOTE | 2025-06-09 12:40 | CM.ED ---
Social Work Date of referral: 06/09/25 Reason for referral: Advanced Care Directives (ACD's) not on file Referred by: Social Work Identification Patient provided consent to Social Work visit. [facility] asked patient to bring in a copy of his ADC's either during next hospital visit of if patient is out in the community and close to the hospital to where patient can just drop off a copy which patient agreed to do. Nayla Butler, M[employer] ROOM OPERATOR, FOOD AND BEVERAGE ATTENDANT
[2025-06-09 14:02] VITALS: BP 127/46; PULSE 70; RESP 16; TEMP 36.5; O2SAT 95
== END 2025-06-09 14:02 | disposition home or self-care (01) ==
PROVIDERS: Emergency Provider Emergency Medicine; PCP Family Medicine; Visit Provider Emergency Medicine
DX: L50.9 Urticaria, unspecified (principal); M10.072 Idiopathic gout, left ankle and foot; R91.1 Solitary pulmonary nodule; I10 Essential (primary) hypertension; Z87.891 Personal history of nicotine dependence; Z79.899 Other long term (current) drug therapy
CPT/HCPCS: 71046; 71250; 99282

== ENCOUNTER → 2025-09-24 | Outpatient (CLI) | payer MEDICARE, OTHER, SELFPAY ==
[2025-09-24 10:44] LABS: Anion Gap 10 (5-15); BUN 24 mg/dL (4-19); BUN/Creat Ratio 17.3 RATIO (10-20); Calcium,Total 9.4 mg/dL (7.6-11.0); Carbon Dioxide 26.8 mmol/L (21.0-32.0); Chloride 105 mmol/L (98-108); Cholesterol 186 mg/dL (<=200); Glucose 107 mg/dL (70-99); Low Density Lipoprotein Calc. 95 mg/dL; Potassium 4.0 mmol/L (3.3-5.1); Triglycerides 348 mg/dL; Very Low Density Lipoprotein 70 mg/dL (5-40); cholesterol:hdl ratio screen 5.74
== END | disposition home or self-care (01) ==
LOC: MTLAB 08:51
PROVIDERS: PCP Family Medicine; Referring Provider Family Medicine; Visit Provider Family Medicine
DX: I10 Essential (primary) hypertension (principal)
CPT/HCPCS: 36415; 80048; 80061